=== PATIENT | male | born 1955 | race American Indian/Alaskan Native ===

== ENCOUNTER 2016-06-25 11:18 | Emergency (ER) | payer MEDICAID ==
[2016-06-25 11:49] VITALS: BP 124/74
--- NOTE | 2016-06-25 13:33 | Emergency Department Report ---
HPI - General Chief Complaint: Urogenital-Male Time Seen by Provider: 06/25/16 12:50 - HPI HPI: 61-year-old male presents today with minimal burning upon urination since this morning. Patient states that he was involved with someone yesterday and had unprotected sex. Denies penile discharge, increased urinary frequency or urgency, blood in urine. Positive for history of syphilis. Denies fever, chills, nausea, vomiting, chest pain, shortness of breath, abdominal pain. ED Past Medical Hx - Past Medical History Hx Hypertension: Yes Hx Diabetes: Yes Hx Arthritis: Yes Hx Asthma: Yes Hx COPD: Yes Additional medical history: ENLARGED HEART. NODULES ON LUNGS. SLEEP APNEA. OBESITY - Surgical History Additional Surgical History: Hip replacement - RIGHT. BACK ABLATION - Social History Smoking Status: Never Smoker Substance Use Type: Alcohol - Medications Home Medications: Home Medications Medication Instructions Recorded Confirmed Last Taken Type Insulin NPH/Regular [NovoLIN 70/30] 85 units SUB-Q BID 01/25/13 01/06/15 08:00 History ALBUTEROL Inhaler [ProAir HFA 2 puff IH QID PRN 11/03/14 01/06/15 Unknown History Inhaler] Metoprolol [Lopressor TAB] 50 mg PO DAILY 11/03/14 01/06/15 Unknown History Montelukast [Singulair] 10 mg PO QPM 11/03/14 01/06/15 Unknown History metFORMIN [Glucophage] 1,000 mg PO BID 11/03/14 01/06/15 Unknown History Aspirin EC [Aspirin Enteric Coated 325 mg PO QDAY #30 tablet 11/04/14 01/06/15 Unknown Rx TAB] Furosemide [Lasix TAB] 80 mg PO QDAY 01/06/15 01/06/15 Unknown History HYDROcodone/APAP 5-325 [[place] 1 each PO Q6HR PRN 01/06/15 01/06/15 Unknown History 5-325 mg TAB] HYDROcodone/APAP 5-325 [[place] 1 each PO Q6HR PRN #10 tablet 01/06/15 Unknown Rx 5-325 mg TAB] Loratadine [Claritin] 10 mg PO DAILY 01/06/15 01/06/15 Unknown History Omeprazole [PriLOSEC] 40 mg PO QDAY 01/06/15 01/06/15 Unknown History traMADol [Ultram 50 MG tab] 50 mg PO Q8HR PRN 01/06/15 01/06/15 Unknown History HYDROcodone/APAP 5-325 [[place] 1 each PO Q6HR PRN #14 tablet 02/01/15 Unknown Rx 5/325] Cyclobenzaprine [Flexeril 10 MG 10 mg PO TID PRN #30 tablet 02/28/15 Unknown Rx TAB] Acetaminophen/Codeine [Tylenol #3] 1 tab PO Q6H PRN #10 tab 05/09/15 Unknown Rx Azithromycin [Zithromax Z-TIFFANIE] 250 mg PO DAILY #6 tab 05/09/15 Unknown Rx Fluticasone [Flonase] 1 spray NS QDAY #1 bottle 05/09/15 Unknown Rx guaiFENesin DM [Robitussin Dm] 5 ml PO Q6HR #120 udc 05/09/15 Unknown Rx methOCARBAMOL [Robaxin TAB] 500 mg PO BID #20 tab 06/13/15 Unknown Rx traMADol [Ultram 50 MG tab] 50 mg PO Q6HR PRN #21 tablet 06/13/15 Unknown Rx HYDROcodone/APAP 5-325 [[place] 1 - 2 each PO Q6HR PRN #10 tablet 08/15/15 Unknown Rx 5-325 mg TAB] Phenazopyridine [Pyridium] 200 mg PO TID #6 tab 06/25/16 Unknown Rx ED Review of Systems ROS: Stated complaint: POSS STD Other details as noted in HPI Constitutional: denies: chills, fever, malaise Eyes: denies: eye pain ENT: denies: ear pain, throat pain, congestion Respiratory: denies: cough, shortness of breath, wheezing Cardiovascular: denies: chest pain, palpitations Endocrine: no symptoms reported Gastrointestinal: denies: abdominal pain, nausea, vomiting Genitourinary: dysuria. denies: urgency, frequency, hematuria, discharge, testicular pain, testicular mass Skin: denies: rash Neurological: denies: headache, weakness Physical Exam - Physical Exam Vital Signs: Vital Signs 06/25/16 11:46 Temperature 98.4 F Pulse Rate 92 H Respiratory 18 Rate Blood Pressure 124/74 O2 Sat by Pulse 96 Oximetry Physical Exam: GENERAL: The patient is well-developed and well-nourished. Patient is in NAD. HEAD: Normocephalic. Atraumatic. CHEST/LUNGS: Clear to auscultation throughout. HEART/CARDIOVASCULAR: Regular rate and rhythm. ABDOMEN: Abdomen is soft, nontender. Bowel sounds normoactive. No guarding or rebound tenderness. Negative for CVA tenderness bilaterally. EXTREMITIES: Peripheral pulses intact. Capillary refill less than 2 seconds. NEURO: Alert and oriented x 3. Normal gait. ED Course Vital Signs 06/25/16 11:46 Temperature 98.4 F Pulse Rate 92 H Respiratory 18 Rate Blood Pressure 124/74 O2 Sat by Pulse 96 Oximetry ED Medical Decision Making - Lab Data Vital Signs 06/25/16 11:46 Temperature 98.4 F Pulse Rate 92 H Respiratory 18 Rate Blood Pressure 124/74 O2 Sat by Pulse 96 Oximetry Lab Results 06/25/16 Range/Units Unknown Urine Color Yellow (Yellow) Urine Turbidity Clear (Clear) Urine pH 6.0 (5.0-7.0) Ur Specific [place] 1.017 (1.003-1.030) Urine Protein <15 mg/dl (Negative) mg/dL Urine Glucose (UA) Neg (Negative) mg/dL Urine Ketones Neg (Negative) mg/dL Urine Blood Sm (Negative) Urine Nitrite Neg (Negative) Urine Bilirubin Neg (Negative) Urine Urobilinogen < 2.0 (<2.0) mg/dL Ur Leukocyte Esterase Neg (Negative) Urine WBC (Auto) < 1.0 (0.0-6.0) /HPF Urine RBC (Auto) 3.0 (0.0-6.0) /HPF U Epithel Cells (Auto) < 1.0 (0-13.0) /HPF Urine Mucus Few /HPF - Medical Decision Making 61-year-old male presents today with dysuria since this morning. His urinalysis is within normal limits. His physical exam is unremarkable. Patient is in no acute distress at this time. He will be discharged home and is encouraged to follow up with a primary care provider. He will be sent home on Pyridium and is encouraged to return to the emergency room for any worsening symptoms. Critical care attestation.: If time is entered above; I have spent that time in minutes in the direct care of this critically ill patient, excluding procedure time. ED Disposition Clinical Impression: Dysuria Disposition: DISCHARGED TO HOME OR SELFCARE Is pt being admited?: No Does the pt Need Aspirin: No Condition: Stable Instructions: Dysuria (ED) Additional Instructions: Follow-up with primary care provider. Return to the emergency department if symptoms worsen. Prescriptions: Phenazopyridine [Pyridium] 200 mg PO TID #6 tab Referrals: PRIMARY CARE, [Primary Care Provider] - 3-5 Days [facility] [Outside] - 3-5 Days Forms: Work/School Release Form(ED), STI Treatment and Prevention Time of Disposition: 14:04
[2016-06-25 13:47] LABS: Bilirubin,Urine NEG (Negative); Blood,Urine SM (Negative); Ketones,Urine NEG (Negative); Leukocyte Esterase,Urine NEG (Negative); Mucus,Urine FEW /HPF; Nitrite,Urine NEG (Negative); Protein,Urine <15 mg/dL mg/dL (Negative); Urobilinogen,Urine < 2.0 mg/dL (<2.0); WBC,Urine < 1.0 /HPF (0.0-6.0)
== END 2016-06-25 14:14 | disposition home or self-care (01) ==
LOC: ED 11:18
DX: R30.0 Dysuria (principal); I10 Essential (primary) hypertension; E11.9 Type 2 diabetes mellitus without complications; M19.90 Unspecified osteoarthritis, unspecified site; J45.909 Unspecified asthma, uncomplicated; J44.9 Chronic obstructive pulmonary disease, unspecified; Z96.641 Presence of right artificial hip joint; Z79.4 Long term (current) use of insulin
CPT/HCPCS: 81001; 99283

== ENCOUNTER 2016-11-29 14:50 | Emergency (ER) | payer MEDICAID ==
--- NOTE | 2016-11-29 17:17 | Ultrasound Report ---
FINAL REPORT PROCEDURE: US TESTICULAR DOPPLER COMP TECHNIQUE: Real-time oliveros-scale and color flow Doppler sonography in multiple planes of the scrotum, testicles, and epididymes was performed. Velocity spectral waveform analysis Doppler imaging of the arterial inflow and venous outflow of the testicles was performed with image documentation. CPT 56284 and 57324 HISTORY: Left testicular pain with hx of abscess COMPARISON: No prior studies are available for comparison. FINDINGS: RIGHT TESTICLE: Size: 3.5 x 1.4 x 2.8 cm . Appearance: Normal size and echotexture . Arterial blood flow: Normal spectral waveforms, flow velocities and color flow images.. Venous blood flow: Normal spectral waveforms and color flow images. Right epididymis: 6 millimeter simple cyst is present. Hydrocele: None . LEFT TESTICLE Size: 3.9 x 2.3 x 2.4 cm . Appearance: Normal size and echotexture . Arterial blood flow: Normal spectral waveforms, flow velocities and color flow images.. Venous blood flow: Normal spectral waveforms and color flow images. Left epididymis: Left epididymal head is enlarged compared to the right side. However there is no significant hypervascularity. Hydrocele: None . IMPRESSION: Left epididymal head is mildly enlarged compared to the right side. However there is no significant hypervascularity. Correlate for possible mild epididymitis.
--- NOTE | 2016-11-29 18:39 | Emergency Department Report ---
HPI - General Chief Complaint: Urogenital-Male Time Seen by Provider: 11/29/16 18:31 - HPI HPI: Testicular pain. ED Past Medical Hx - Past Medical History Hx Hypertension: Yes Hx Diabetes: Yes Hx Arthritis: Yes Hx Asthma: Yes Hx COPD: Yes Additional medical history: ENLARGED HEART. NODULES ON LUNGS. SLEEP APNEA. OBESITY - Surgical History Additional Surgical History: Hip replacement - RIGHT. BACK ABLATION - Social History Smoking Status: Never Smoker Substance Use Type: None - Medications Home Medications: Home Medications Medication Instructions Recorded Confirmed Last Taken Type Insulin NPH/Regular [NovoLIN 70/30] 85 units SUB-Q BID 01/25/13 01/06/15 08:00 History ALBUTEROL Inhaler [ProAir HFA 2 puff IH QID PRN 11/03/14 01/06/15 Unknown History Inhaler] Metoprolol [Lopressor TAB] 50 mg PO DAILY 11/03/14 01/06/15 Unknown History Montelukast [Singulair] 10 mg PO QPM 11/03/14 01/06/15 Unknown History metFORMIN [Glucophage] 1,000 mg PO BID 11/03/14 01/06/15 Unknown History Aspirin EC [Aspirin Enteric Coated 325 mg PO QDAY #30 tablet 11/04/14 01/06/15 Unknown Rx TAB] Furosemide [Lasix TAB] 80 mg PO QDAY 01/06/15 01/06/15 Unknown History HYDROcodone/APAP 5-325 [[place] 1 each PO Q6HR PRN 01/06/15 01/06/15 Unknown History 5-325 mg TAB] HYDROcodone/APAP 5-325 [[place] 1 each PO Q6HR PRN #10 tablet 01/06/15 Unknown Rx 5-325 mg TAB] Loratadine [Claritin] 10 mg PO DAILY 01/06/15 01/06/15 Unknown History Omeprazole [PriLOSEC] 40 mg PO QDAY 01/06/15 01/06/15 Unknown History traMADol [Ultram 50 MG tab] 50 mg PO Q8HR PRN 01/06/15 01/06/15 Unknown History HYDROcodone/APAP 5-325 [[place] 1 each PO Q6HR PRN #14 tablet 02/01/15 Unknown Rx 5/325] Cyclobenzaprine [Flexeril 10 MG 10 mg PO TID PRN #30 tablet 02/28/15 Unknown Rx TAB] Acetaminophen/Codeine [Tylenol #3] 1 tab PO Q6H PRN #10 tab 05/09/15 Unknown Rx Azithromycin [Zithromax Z-TIFFANIE] 250 mg PO DAILY #6 tab 05/09/15 Unknown Rx Fluticasone [Flonase] 1 spray NS QDAY #1 bottle 05/09/15 Unknown Rx guaiFENesin DM [Robitussin Dm] 5 ml PO Q6HR #120 udc 05/09/15 Unknown Rx methOCARBAMOL [Robaxin TAB] 500 mg PO BID #20 tab 06/13/15 Unknown Rx traMADol [Ultram 50 MG tab] 50 mg PO Q6HR PRN #21 tablet 06/13/15 Unknown Rx HYDROcodone/APAP 5-325 [[place] 1 - 2 each PO Q6HR PRN #10 tablet 08/15/15 Unknown Rx 5-325 mg TAB] Phenazopyridine [Pyridium] 200 mg PO TID #6 tab 06/25/16 Unknown Rx Ciprofloxacin HCl [Ciprofloxacin 500 mg PO Q12HR #14 tab 11/29/16 Unknown Rx TAB] ED Review of Systems ROS: Stated complaint: TESTICULAR PAIN Other details as noted in HPI Physical Exam - Physical Exam Vital Signs: Vital Signs 11/29/16 15:16 Temperature 98.1 F Pulse Rate 104 H Respiratory 20 Rate Blood Pressure 114/72 O2 Sat by Pulse 96 Oximetry ED Course Vital Signs 11/29/16 15:16 Temperature 98.1 F Pulse Rate 104 H Respiratory 20 Rate Blood Pressure 114/72 O2 Sat by Pulse 96 Oximetry Critical care attestation.: If time is entered above; I have spent that time in minutes in the direct care of this critically ill patient, excluding procedure time. ED Disposition Clinical Impression: Left epididymitis Disposition: DC-01 TO HOME OR SELFCARE Is pt being admited?: No Does the pt Need Aspirin: No Condition: Stable Instructions: Epididymitis (ED) Prescriptions: Ciprofloxacin HCl [Ciprofloxacin TAB] 500 mg PO Q12HR #14 tab Referrals: PRIMARY CARE, [Primary Care Provider] - 3-5 Days Forms: STI Treatment and Prevention
[2016-11-29] MEDS ORDERED: ROCEPHIN IM ONE (18:42)
[2016-11-29] MEDS ORDERED: XYLOCAINE 1% MPF 5 mL INFILTRATI ONE (18:42)
[2016-11-29 18:43] VITALS: BP 136/74
[2016-11-29] MEDS ORDERED: NORCO 5/325 PO ONE (18:44)
[2016-11-29] MEDS ORDERED: TORADOL IM ONE (18:51)
[2016-11-29] MEDS ORDERED: TORADOL ONE (18:51)
== END 2016-11-29 19:38 | disposition home or self-care (01) ==
LOC: ED 14:50
DX: N50.812 Left testicular pain (principal); I10 Essential (primary) hypertension; E11.9 Type 2 diabetes mellitus without complications; M19.90 Unspecified osteoarthritis, unspecified site; J45.909 Unspecified asthma, uncomplicated; E66.9 Obesity, unspecified; Z79.4 Long term (current) use of insulin; Z79.82 Long term (current) use of aspirin; Z88.8 Allergy status to other drugs, medicaments and biological substances
CPT/HCPCS: 93975; 96372; 99283; J0696; J1885

== ENCOUNTER 2016-12-18 10:54 | Emergency (ER) | payer MEDICAID ==
--- NOTE | 2016-12-18 11:32 | Emergency Department Report ---
ED Lower Extremity HPI - General Chief Complaint: Extremity Injury, Lower Stated Complaint: HEEL SPUR Time Seen by Provider: 12/18/16 11:28 Source: patient Mode of arrival: Ambulatory Limitations: No Limitations - History of Present Illness Initial Comments: right foot pain . -: Gradual, month(s) (two) Injury: Foot: Right (no injury) - Related Data Home Medications Medication Instructions Recorded Confirmed Last Taken Insulin NPH/Regular [NovoLIN 70/30] 85 units SUB-Q BID 01/25/13 01/06/15 08:00 ALBUTEROL Inhaler [ProAir HFA 2 puff IH QID PRN 11/03/14 01/06/15 Unknown Inhaler] Metoprolol [Lopressor TAB] 50 mg PO DAILY 11/03/14 01/06/15 Unknown Montelukast [Singulair] 10 mg PO QPM 11/03/14 01/06/15 Unknown metFORMIN [Glucophage] 1,000 mg PO BID 11/03/14 01/06/15 Unknown Furosemide [Lasix TAB] 80 mg PO QDAY 01/06/15 01/06/15 Unknown HYDROcodone/APAP 5-325 [[place] 1 each PO Q6HR PRN 01/06/15 01/06/15 Unknown 5-325 mg TAB] Loratadine [Claritin] 10 mg PO DAILY 01/06/15 01/06/15 Unknown Omeprazole [PriLOSEC] 40 mg PO QDAY 01/06/15 01/06/15 Unknown traMADol [Ultram 50 MG tab] 50 mg PO Q8HR PRN 01/06/15 01/06/15 Unknown Previous Rx's Medication Instructions Recorded Last Taken Type Aspirin EC [Aspirin Enteric Coated 325 mg PO QDAY #30 tablet 11/04/14 Unknown Rx TAB] HYDROcodone/APAP 5-325 [[place] 1 each PO Q6HR PRN #10 tablet 01/06/15 Unknown Rx 5-325 mg TAB] HYDROcodone/APAP 5-325 [[place] 1 each PO Q6HR PRN #14 tablet 02/01/15 Unknown Rx 5/325] Cyclobenzaprine [Flexeril 10 MG 10 mg PO TID PRN #30 tablet 02/28/15 Unknown Rx TAB] Acetaminophen/Codeine [Tylenol #3] 1 tab PO Q6H PRN #10 tab 05/09/15 Unknown Rx Azithromycin [Zithromax Z-TIFFANIE] 250 mg PO DAILY #6 tab 05/09/15 Unknown Rx Fluticasone [Flonase] 1 spray NS QDAY #1 bottle 05/09/15 Unknown Rx guaiFENesin DM [Robitussin Dm] 5 ml PO Q6HR #120 udc 05/09/15 Unknown Rx methOCARBAMOL [Robaxin TAB] 500 mg PO BID #20 tab 06/13/15 Unknown Rx traMADol [Ultram 50 MG tab] 50 mg PO Q6HR PRN #21 tablet 06/13/15 Unknown Rx HYDROcodone/APAP 5-325 [[place] 1 - 2 each PO Q6HR PRN #10 tablet 08/15/15 Unknown Rx 5-325 mg TAB] Phenazopyridine [Pyridium] 200 mg PO TID #6 tab 06/25/16 Unknown Rx Ciprofloxacin HCl [Ciprofloxacin 500 mg PO Q12HR #14 tab 11/29/16 Unknown Rx TAB] Acetaminophen/Codeine [Tylenol 1 tab PO Q6H PRN #14 tab 12/18/16 Unknown Rx /Codeine # 3 tab] Naproxen [Naprosyn] 500 mg PO BID #14 tablet 12/18/16 Unknown Rx Allergies Allergy/AdvReac Type Severity Reaction Status Date / Time lisinopril Allergy Itching Verified 12/18/16 11:04 metformin AdvReac Diarrhea Verified 12/18/16 11:05 ED Review of Systems ROS: Stated complaint: HEEL SPUR Other details as noted in HPI Constitutional: denies: chills, fever ED Past Medical Hx - Past Medical History Hx Hypertension: Yes Hx Diabetes: Yes Hx Arthritis: Yes Hx Asthma: Yes Hx COPD: Yes Additional medical history: ENLARGED HEART. NODULES ON LUNGS. SLEEP APNEA. OBESITY - Surgical History Additional Surgical History: Hip replacement - RIGHT. BACK ABLATION - Social History Smoking Status: Never Smoker Substance Use Type: Prescribed - Medications Home Medications: Home Medications Medication Instructions Recorded Confirmed Last Taken Type Insulin NPH/Regular [NovoLIN 70/30] 85 units SUB-Q BID 01/25/13 01/06/15 08:00 History ALBUTEROL Inhaler [ProAir HFA 2 puff IH QID PRN 11/03/14 01/06/15 Unknown History Inhaler] Metoprolol [Lopressor TAB] 50 mg PO DAILY 11/03/14 01/06/15 Unknown History Montelukast [Singulair] 10 mg PO QPM 11/03/14 01/06/15 Unknown History metFORMIN [Glucophage] 1,000 mg PO BID 11/03/14 01/06/15 Unknown History Aspirin EC [Aspirin Enteric Coated 325 mg PO QDAY #30 tablet 11/04/14 01/06/15 Unknown Rx TAB] Furosemide [Lasix TAB] 80 mg PO QDAY 01/06/15 01/06/15 Unknown History HYDROcodone/APAP 5-325 [[place] 1 each PO Q6HR PRN 01/06/15 01/06/15 Unknown History 5-325 mg TAB] HYDROcodone/APAP 5-325 [[place] 1 each PO Q6HR PRN #10 tablet 01/06/15 Unknown Rx 5-325 mg TAB] Loratadine [Claritin] 10 mg PO DAILY 01/06/15 01/06/15 Unknown History Omeprazole [PriLOSEC] 40 mg PO QDAY 01/06/15 01/06/15 Unknown History traMADol [Ultram 50 MG tab] 50 mg PO Q8HR PRN 01/06/15 01/06/15 Unknown History HYDROcodone/APAP 5-325 [[place] 1 each PO Q6HR PRN #14 tablet 02/01/15 Unknown Rx 5/325] Cyclobenzaprine [Flexeril 10 MG 10 mg PO TID PRN #30 tablet 02/28/15 Unknown Rx TAB] Acetaminophen/Codeine [Tylenol #3] 1 tab PO Q6H PRN #10 tab 05/09/15 Unknown Rx Azithromycin [Zithromax Z-TIFFANIE] 250 mg PO DAILY #6 tab 05/09/15 Unknown Rx Fluticasone [Flonase] 1 spray NS QDAY #1 bottle 05/09/15 Unknown Rx guaiFENesin DM [Robitussin Dm] 5 ml PO Q6HR #120 udc 05/09/15 Unknown Rx methOCARBAMOL [Robaxin TAB] 500 mg PO BID #20 tab 06/13/15 Unknown Rx traMADol [Ultram 50 MG tab] 50 mg PO Q6HR PRN #21 tablet 06/13/15 Unknown Rx HYDROcodone/APAP 5-325 [[place] 1 - 2 each PO Q6HR PRN #10 tablet 08/15/15 Unknown Rx 5-325 mg TAB] Phenazopyridine [Pyridium] 200 mg PO TID #6 tab 06/25/16 Unknown Rx Ciprofloxacin HCl [Ciprofloxacin 500 mg PO Q12HR #14 tab 11/29/16 Unknown Rx TAB] Acetaminophen/Codeine [Tylenol 1 tab PO Q6H PRN #14 tab 12/18/16 Unknown Rx /Codeine # 3 tab] Naproxen [Naprosyn] 500 mg PO BID #14 tablet 12/18/16 Unknown Rx ED Physical Exam - General Limitations: No Limitations General appearance: alert - Expanded Lower Extremity Exam Right Foot/Toe exam: Present: full ROM, tenderness, calcaneal tenderness. Absent: swelling, abrasion, laceration, ecchymosis, deformity, dislocation, erythema, tenderness at base of 5th metatarsal Neuro vascular tendon exam: Present: no vascular compromise - Skin Skin exam: Present: warm, intact ED Course Vital Signs 12/18/16 11:08 Temperature 97.9 F Pulse Rate 86 Respiratory 15 Rate Blood Pressure 130/75 O2 Sat by Pulse 96 Oximetry Critical care attestation.: If time is entered above; I have spent that time in minutes in the direct care of this critically ill patient, excluding procedure time. ED Disposition Clinical Impression: Foot pain, Plantar fasciitis Disposition: DC-01 TO HOME OR SELFCARE Is pt being admited?: No Condition: Stable Instructions: Plantar Fasciitis (ED) Prescriptions: Acetaminophen/Codeine [Tylenol /Codeine # 3 tab] 1 tab PO Q6H PRN #14 tab PRN Reason: Pain Naproxen [Naprosyn] 500 mg PO BID #14 tablet
--- NOTE | 2016-12-18 11:58 | XRay Report ---
RIGHT FOOT RADIOGRAPHS INDICATION: Foot pain. COMPARISON: None similar. FINDINGS: AP and lateral right foot radiographs demonstrate moderate hallux valgus. Intact remainder bony articulation and soft tissues. CONCLUSION: Hallux valgus without acute radiographic abnormality, as described. Thank you for the opportunity to participate in this patient's care.
[2016-12-18 12:45] VITALS: BP 138/89
== END 2016-12-18 12:45 | disposition home or self-care (01) ==
LOC: ED 10:54
DX: M72.2 Plantar fascial fibromatosis (principal); I10 Essential (primary) hypertension; E11.9 Type 2 diabetes mellitus without complications; J45.909 Unspecified asthma, uncomplicated; J44.9 Chronic obstructive pulmonary disease, unspecified

== ENCOUNTER 2017-01-04 21:59 | Emergency (ER) | payer MEDICAID ==
--- NOTE | 2017-01-05 01:30 | XRay Report ---
FINAL REPORT EXAM: XR FOOT 3+V RT HISTORY: Right foot injury COMPARISON: None available. FINDINGS: Three views of right foot obtained. Mild hallux valgus deformity with bunion formation. Joint spaces are preserved. Bony structures are intact. No acute fracture or dislocation. IMPRESSION: No acute bony abnormality.
[2017-01-05] MEDS ORDERED: TORADOL IV ONE (01:47)
[2017-01-05] MEDS ORDERED: NORCO 5/325 PO ONE (01:47)
--- NOTE | 2017-01-05 01:50 | Emergency Department Report ---
ED Lower Extremity HPI - General Chief Complaint: Extremity Injury, Lower Stated Complaint: R FOOT INJURY Source: patient, EMS (ems notes not available at time of chart dictation), RN notes reviewed Mode of arrival: Stretcher Limitations: No Limitations - History of Present Illness Initial Comments: This is a 61-year-old male, he is previously unknown to me. He presents to the ER with right-sided dorsal and plantar foot pain. He reports walking through stairs, and heard a "pop", and has a subsequent inability to bear weight. The patient is on the dorsal and plantar aspect of the foot, it does not radiate anywhere, it increases with palpation and range of motion, and decreases with rest. No other injuries, no other complaints. MD Complaint: foot injury -: Sudden Injury: Foot: Right Type of Injury: unknown Place: home Severity: moderate Improves With: rest Worsens With: weight bearing, movement, palpation Context: walking Associated Symptoms: snap/pop sensation, swelling - Related Data Home Medications Medication Instructions Recorded Confirmed Last Taken Insulin NPH/Regular [NovoLIN 70/30] 85 units SUB-Q BID 01/25/13 01/06/15 08:00 ALBUTEROL Inhaler [ProAir HFA 2 puff IH QID PRN 11/03/14 01/06/15 Unknown Inhaler] Metoprolol [Lopressor TAB] 50 mg PO DAILY 11/03/14 01/06/15 Unknown Montelukast [Singulair] 10 mg PO QPM 11/03/14 01/06/15 Unknown metFORMIN [Glucophage] 1,000 mg PO BID 11/03/14 01/06/15 Unknown Furosemide [Lasix TAB] 80 mg PO QDAY 01/06/15 01/06/15 Unknown HYDROcodone/APAP 5-325 [[place] 1 each PO Q6HR PRN 01/06/15 01/06/15 Unknown 5-325 mg TAB] Loratadine [Claritin] 10 mg PO DAILY 01/06/15 01/06/15 Unknown Omeprazole [PriLOSEC] 40 mg PO QDAY 01/06/15 01/06/15 Unknown traMADol [Ultram 50 MG tab] 50 mg PO Q8HR PRN 01/06/15 01/06/15 Unknown Previous Rx's Medication Instructions Recorded Last Taken Type Aspirin EC [Aspirin Enteric Coated 325 mg PO QDAY #30 tablet 11/04/14 Unknown Rx TAB] HYDROcodone/APAP 5-325 [[place] 1 each PO Q6HR PRN #10 tablet 01/06/15 Unknown Rx 5-325 mg TAB] HYDROcodone/APAP 5-325 [[place] 1 each PO Q6HR PRN #14 tablet 02/01/15 Unknown Rx 5/325] Cyclobenzaprine [Flexeril 10 MG 10 mg PO TID PRN #30 tablet 02/28/15 Unknown Rx TAB] Acetaminophen/Codeine [Tylenol #3] 1 tab PO Q6H PRN #10 tab 05/09/15 Unknown Rx Azithromycin [Zithromax Z-TIFFANIE] 250 mg PO DAILY #6 tab 05/09/15 Unknown Rx Fluticasone [Flonase] 1 spray NS QDAY #1 bottle 05/09/15 Unknown Rx guaiFENesin DM [Robitussin Dm] 5 ml PO Q6HR #120 udc 05/09/15 Unknown Rx methOCARBAMOL [Robaxin TAB] 500 mg PO BID #20 tab 06/13/15 Unknown Rx traMADol [Ultram 50 MG tab] 50 mg PO Q6HR PRN #21 tablet 06/13/15 Unknown Rx HYDROcodone/APAP 5-325 [[place] 1 - 2 each PO Q6HR PRN #10 tablet 08/15/15 Unknown Rx 5-325 mg TAB] Phenazopyridine [Pyridium] 200 mg PO TID #6 tab 06/25/16 Unknown Rx Ciprofloxacin HCl [Ciprofloxacin 500 mg PO Q12HR #14 tab 11/29/16 Unknown Rx TAB] Acetaminophen/Codeine [Tylenol 1 tab PO Q6H PRN #14 tab 12/18/16 Unknown Rx /Codeine # 3 tab] Naproxen [Naprosyn] 500 mg PO BID #14 tablet 12/18/16 Unknown Rx Ibuprofen [Motrin] 600 mg PO Q8H PRN #30 tablet 01/05/17 Unknown Rx traMADol [Ultram 50 MG tab] 50 mg PO Q6HR PRN #20 tablet 01/05/17 Unknown Rx Allergies Allergy/AdvReac Type Severity Reaction Status Date / Time lisinopril Allergy Itching Verified 12/18/16 11:04 metformin AdvReac Diarrhea Verified 12/18/16 11:05 ED Review of Systems ROS: Stated complaint: R FOOT INJURY Other details as noted in HPI Constitutional: denies: fever Respiratory: denies: shortness of breath Cardiovascular: denies: chest pain Gastrointestinal: denies: abdominal pain Musculoskeletal: arthralgia, myalgia Neurological: denies: weakness, numbness ED Past Medical Hx - Past Medical History Previous Medical History?: Yes Hx Hypertension: Yes Hx Diabetes: Yes Hx Arthritis: Yes Hx Asthma: Yes Hx COPD: Yes Additional medical history: ENLARGED HEART. NODULES ON LUNGS. SLEEP APNEA Uses a CPAP machine at night. OBESITY - Surgical History Additional Surgical History: Hip replacement - RIGHT. BACK ABLATION - Social History Smoking Status: Never Smoker - Medications Home Medications: Home Medications Medication Instructions Recorded Confirmed Last Taken Type Insulin NPH/Regular [NovoLIN 70/30] 85 units SUB-Q BID 01/25/13 01/06/15 08:00 History ALBUTEROL Inhaler [ProAir HFA 2 puff IH QID PRN 11/03/14 01/06/15 Unknown History Inhaler] Metoprolol [Lopressor TAB] 50 mg PO DAILY 11/03/14 01/06/15 Unknown History Montelukast [Singulair] 10 mg PO QPM 11/03/14 01/06/15 Unknown History metFORMIN [Glucophage] 1,000 mg PO BID 11/03/14 01/06/15 Unknown History Aspirin EC [Aspirin Enteric Coated 325 mg PO QDAY #30 tablet 11/04/14 01/06/15 Unknown Rx TAB] Furosemide [Lasix TAB] 80 mg PO QDAY 01/06/15 01/06/15 Unknown History HYDROcodone/APAP 5-325 [[place] 1 each PO Q6HR PRN 01/06/15 01/06/15 Unknown History 5-325 mg TAB] HYDROcodone/APAP 5-325 [[place] 1 each PO Q6HR PRN #10 tablet 01/06/15 Unknown Rx 5-325 mg TAB] Loratadine [Claritin] 10 mg PO DAILY 01/06/15 01/06/15 Unknown History Omeprazole [PriLOSEC] 40 mg PO QDAY 01/06/15 01/06/15 Unknown History traMADol [Ultram 50 MG tab] 50 mg PO Q8HR PRN 01/06/15 01/06/15 Unknown History HYDROcodone/APAP 5-325 [[place] 1 each PO Q6HR PRN #14 tablet 02/01/15 Unknown Rx 5/325] Cyclobenzaprine [Flexeril 10 MG 10 mg PO TID PRN #30 tablet 02/28/15 Unknown Rx TAB] Acetaminophen/Codeine [Tylenol #3] 1 tab PO Q6H PRN #10 tab 05/09/15 Unknown Rx Azithromycin [Zithromax Z-TIFFANIE] 250 mg PO DAILY #6 tab 05/09/15 Unknown Rx Fluticasone [Flonase] 1 spray NS QDAY #1 bottle 05/09/15 Unknown Rx guaiFENesin DM [Robitussin Dm] 5 ml PO Q6HR #120 udc 05/09/15 Unknown Rx methOCARBAMOL [Robaxin TAB] 500 mg PO BID #20 tab 06/13/15 Unknown Rx traMADol [Ultram 50 MG tab] 50 mg PO Q6HR PRN #21 tablet 06/13/15 Unknown Rx HYDROcodone/APAP 5-325 [[place] 1 - 2 each PO Q6HR PRN #10 tablet 08/15/15 Unknown Rx 5-325 mg TAB] Phenazopyridine [Pyridium] 200 mg PO TID #6 tab 06/25/16 Unknown Rx Ciprofloxacin HCl [Ciprofloxacin 500 mg PO Q12HR #14 tab 11/29/16 Unknown Rx TAB] Acetaminophen/Codeine [Tylenol 1 tab PO Q6H PRN #14 tab 12/18/16 Unknown Rx /Codeine # 3 tab] Naproxen [Naprosyn] 500 mg PO BID #14 tablet 12/18/16 Unknown Rx Ibuprofen [Motrin] 600 mg PO Q8H PRN #30 tablet 01/05/17 Unknown Rx traMADol [Ultram 50 MG tab] 50 mg PO Q6HR PRN #20 tablet 01/05/17 Unknown Rx ED Physical Exam - General Limitations: Physical Limitation General appearance: alert, in no apparent distress - Head Head exam: Present: atraumatic, normocephalic - Eye Eye exam: Present: normal appearance, EOMI. Absent: nystagmus - ENT ENT exam: Present: normal exam, normal orophraynx, mucous membranes moist, normal external ear exam - Neck Neck exam: Present: normal inspection, full ROM. Absent: tenderness - Respiratory Respiratory exam: Present: normal lung sounds bilaterally. Absent: respiratory distress, chest wall tenderness - Cardiovascular Cardiovascular Exam: Present: regular rate, normal rhythm, normal heart sounds. Absent: systolic murmur, diastolic murmur, rubs, gallop - GI/Abdominal GI/Abdominal exam: Present: soft, normal bowel sounds. Absent: distended, tenderness, guarding, rebound, rigid, pulsatile mass - Rectal Rectal exam: Present: deferred - Extremities Exam Extremities exam: Present: normal inspection, full ROM, tenderness (the dorsal and plantar aspect of the right foot are tender. There is no calcaneal tenderness. There is no tenderness at the base of the fifth metatarsal. There is no streaking. There is pain with passive range of motion of the great toe. Dorsi and plantar flexion of the right-sided toes are intact.), normal capillary refill, other (the bilateral upper extremities are unremarkable, the left lower extremity is unremarkable. Compartments are soft in 4 extremities, 2 + pulses noted in 4 extremities. There is no pelvic instability. There is no long bony tenderness in the bilateral upper and lower extremities.). Absent: pedal edema, joint swelling, calf tenderness - Back Exam Back exam: Present: normal inspection, full ROM. Absent: tenderness, CVA tenderness (R), CVA tenderness (L), muscle spasm, paraspinal tenderness, vertebral tenderness - Neurological Exam Neurological exam: Present: alert, oriented X3, other (Extraocular movements intact. Tongue midline. No facial droop. Facial sensation intact to light touch in the V1, V2, V3 distribution bilaterally. 5 and 5 strength in 4 extremities.. Sensation is intact to light touch in 4 extremities.). Absent: motor sensory deficit - Psychiatric Psychiatric exam: Present: normal affect, normal mood - Skin Skin exam: Present: warm, dry, intact, normal color. Absent: rash ED Course Vital Signs 01/04/17 23:22 Temperature 98.1 F Pulse Rate 103 H Respiratory 18 Rate Blood Pressure 119/73 O2 Sat by Pulse 97 Oximetry ED Lower Extremity MDM - Lab Data Vital Signs 01/04/17 23:22 Temperature 98.1 F Pulse Rate 103 H Respiratory 18 Rate Blood Pressure 119/73 O2 Sat by Pulse 97 Oximetry - Radiology Data Radiology results: report reviewed, image reviewed interpreted by me: X-ray of the foot is negative for acute disease - Medical Decision Making Differential diagnosis: Tendinitis, plantar fasciitis, tendon sprain, tendon strain, tendon compromise/rupture Assessment and plan: 61-year-old male with spontaneous right sided plantar foot pain and dorsal pain. He is afebrile with reassuring vital signs, his tachycardia has resolved, he is neurovascularly intact. His compartments are soft. Patient will be placed in a hard sole shoe, he is made nonweightbearing and given crutches, and he is instructed to follow-up with outpatient podiatry or orthopedics. Return precautions are reviewed at this time. Critical care attestation.: If time is entered above; I have spent that time in minutes in the direct care of this critically ill patient, excluding procedure time. ED Disposition Clinical Impression: Right foot pain Disposition: DC-01 TO HOME OR SELFCARE Is pt being admited?: No Does the pt Need Aspirin: No Condition: Stable Instructions: Plantar Fasciitis (ED) Additional Instructions: Rest and avoid heavy lifting. Use the crutches as directed. Apply the hard sole shoe to the affected right lower extremity foot. Follow up with a training project manager or orthopedic physician within the next 5-7 days. Return to the ER right away with new pain, worsening pain, migration of pain, fevers, chills, chest pain, shortness of breath, weakness, numbness, intractable nausea or vomiting, confusion, inability to tolerate liquid feeds. Prescriptions: Ibuprofen [Motrin] 600 mg PO Q8H PRN #30 tablet PRN Reason: Pain traMADol [Ultram 50 MG tab] 50 mg PO Q6HR PRN #20 tablet PRN Reason: Pain Referrals: PRIMARY CARE, [Primary Care Provider] - 3-5 Days TJ SÁNCHEZ DPM [Staff Physician] - 3-5 Days ALISON MERRITT MD [Staff Physician] - 3-5 Days Forms: Work/School Release Form(ED)
[2017-01-05 03:56] VITALS: BP 150/60
== END 2017-01-05 03:56 | disposition home or self-care (01) ==
LOC: ED 21:59
DX: M79.671 Pain in right foot (principal); I10 Essential (primary) hypertension; E11.9 Type 2 diabetes mellitus without complications; J45.909 Unspecified asthma, uncomplicated; Z88.8 Allergy status to other drugs, medicaments and biological substances; X58.XXXA Exposure to other specified factors, initial encounter; Y93.89 Activity, other specified; Y92.89 Other specified places as the place of occurrence of the external cause; Y99.8 Other external cause status
CPT/HCPCS: 73630; 96374; 99284; J1885

== ENCOUNTER 2017-06-04 09:25 | Emergency (ER) | payer MEDICAID ==
[2017-06-04 09:59] VITALS: BP 132/64
[2017-06-04] MEDS ORDERED: DELTASONE PO ONE (13:30)
[2017-06-04] MEDS ORDERED: FLEXERIL PO ONE (13:30)
[2017-06-04] MEDS ORDERED: TORADOL IM ONE (13:30)
--- NOTE | 2017-06-04 13:32 | Emergency Department Report ---
HPI - General Chief Complaint: Extremity Problem,Nontraumatic Time Seen by Provider: 06/04/17 13:11 - HPI HPI: Patient is a 62-year-old male with a history of chronic left hip degenerative joint disease who presents to ED stating the past couple of days his hip pain has been aggravated him due to the fact that he is out of his medications. She states he sees [facility] for his primary care and is not able to get an appointment next month. Patient denies any recent injury or trauma to the hip. Patient denies any loss of sensation or inability to walk. Patient just states that hip pain is aggravated with walking and standing. ED Past Medical Hx - Past Medical History Previous Medical History?: Yes Hx Hypertension: Yes Hx Diabetes: Yes Hx Arthritis: Yes Hx Asthma: Yes Hx COPD: Yes Additional medical history: ENLARGED HEART. NODULES ON LUNGS. SLEEP APNEA Uses a CPAP machine at night. OBESITY - Surgical History Additional Surgical History: Hip replacement - RIGHT. BACK ABLATION - Social History Smoking Status: Never Smoker Substance Use Type: Alcohol - Medications Home Medications: Home Medications Medication Instructions Recorded Confirmed Last Taken Type Insulin NPH/Regular [NovoLIN 70/30] 85 units SUB-Q BID 01/25/13 01/06/15 08:00 History ALBUTEROL Inhaler [ProAir HFA 2 puff IH QID PRN 11/03/14 01/06/15 Unknown History Inhaler] Metoprolol [Lopressor TAB] 50 mg PO DAILY 11/03/14 01/06/15 Unknown History Montelukast [Singulair] 10 mg PO QPM 11/03/14 01/06/15 Unknown History metFORMIN [Glucophage] 1,000 mg PO BID 11/03/14 01/06/15 Unknown History Aspirin EC [Aspirin Enteric Coated 325 mg PO QDAY #30 tablet 11/04/14 01/06/15 Unknown Rx TAB] Furosemide [Lasix TAB] 80 mg PO QDAY 01/06/15 01/06/15 Unknown History HYDROcodone/APAP 5-325 [[place] 1 each PO Q6HR PRN 01/06/15 01/06/15 Unknown History 5-325 mg TAB] HYDROcodone/APAP 5-325 [[place] 1 each PO Q6HR PRN #10 tablet 01/06/15 Unknown Rx 5-325 mg TAB] Loratadine [Claritin] 10 mg PO DAILY 01/06/15 01/06/15 Unknown History Omeprazole [PriLOSEC] 40 mg PO QDAY 01/06/15 01/06/15 Unknown History traMADol [Ultram 50 MG tab] 50 mg PO Q8HR PRN 01/06/15 01/06/15 Unknown History HYDROcodone/APAP 5-325 [[place] 1 each PO Q6HR PRN #14 tablet 02/01/15 Unknown Rx 5/325] Acetaminophen/Codeine [Tylenol #3] 1 tab PO Q6H PRN #10 tab 05/09/15 Unknown Rx Azithromycin [Zithromax Z-TIFFANIE] 250 mg PO DAILY #6 tab 05/09/15 Unknown Rx Fluticasone [Flonase] 1 spray NS QDAY #1 bottle 05/09/15 Unknown Rx guaiFENesin DM [Robitussin Dm] 5 ml PO Q6HR #120 udc 05/09/15 Unknown Rx methOCARBAMOL [Robaxin TAB] 500 mg PO BID #20 tab 06/13/15 Unknown Rx traMADol [Ultram 50 MG tab] 50 mg PO Q6HR PRN #21 tablet 06/13/15 Unknown Rx HYDROcodone/APAP 5-325 [[place] 1 - 2 each PO Q6HR PRN #10 tablet 08/15/15 Unknown Rx 5-325 mg TAB] Phenazopyridine [Pyridium] 200 mg PO TID #6 tab 06/25/16 Unknown Rx Ciprofloxacin HCl [Ciprofloxacin 500 mg PO Q12HR #14 tab 11/29/16 Unknown Rx TAB] Acetaminophen/Codeine [Tylenol 1 tab PO Q6H PRN #14 tab 12/18/16 Unknown Rx /Codeine # 3 tab] Ibuprofen [Motrin] 600 mg PO Q8H PRN #30 tablet 01/05/17 Unknown Rx traMADol [Ultram 50 MG tab] 50 mg PO Q6HR PRN #20 tablet 01/05/17 Unknown Rx Cyclobenzaprine [Flexeril 10 MG 10 mg PO QHS PRN #20 tablet 06/04/17 Unknown Rx TAB] Naproxen [Naprosyn TAB] 500 mg PO BID #30 tablet 06/04/17 Unknown Rx ED Review of Systems ROS: Stated complaint: LEFT HIP PAIN Other details as noted in HPI Constitutional: denies: chills, fever Eyes: denies: eye pain, eye discharge, vision change ENT: denies: ear pain, throat pain Respiratory: denies: cough, shortness of breath, wheezing Cardiovascular: denies: chest pain, palpitations Endocrine: no symptoms reported Gastrointestinal: denies: abdominal pain, nausea, diarrhea Genitourinary: denies: urgency, dysuria Musculoskeletal: arthralgia. denies: back pain, joint swelling Skin: denies: rash, lesions Neurological: denies: headache, weakness, paresthesias Psychiatric: denies: anxiety, depression Hematological/Lymphatic: denies: easy bleeding, easy bruising Physical Exam - Physical Exam Vital Signs: Vital Signs 06/04/17 09:56 Temperature 98.6 F Pulse Rate 84 Respiratory 18 Rate Blood Pressure 132/64 O2 Sat by Pulse 100 Oximetry Physical Exam: GENERAL: Alert and oriented x3, no apparent distress, Normal Gait, atraumatic. HEAD: Head is normocephalic and a-traumatic. EYES: Extra ocular muscles are intact. Pupils are equal, round, and reactive to light and accommodation. EARS: symetrical, atraumatic, non tender, ear canal clear and moderate cerumen, tympanic membrance non inflamed. gross auditory nml bilaterally. NOSE: Nose symetrical, Nontender,Nares appeared normal. MOUTH:Mouth is well hydrated and without lesions. Tonsils nonerythematous or swollen, Uvula midline, Tongue not elevated. Mucous membranes are moist. Posterior pharynx clear, no exudate or lesions. Patent airways. NECK: Supple. Non edematous, No carotid bruits. No lymphadenopathy or thyromegaly. No C-spine tenderness LUNGS: Symetrical with respiration, No wheezing, no rales or crackles, CTAB. HEART: S1, S2 present, regular rate and rhythm without murmur, no rubs, no gallops. Non tender to palpation ABDOMEN: No organomegaly was noted,Positive bowel sounds, soft, and non- distended. . Nontender to palpation on all Quadrants, NO CVA tenderness. BACK: Full range of motion, no spinal tenderness, nontender to palpation. BREAST: Symetrical, Supple bilaterally, No Masses, lumps, lesions, ulcerations. GENITOURINARY: External genitalia without erythema, exudate or discharge. Vaginal vault is without discharge. Cervix is of normal color without lesion. Cervical os is closed. No bleeding noted. Uterus is noted to be of normal size and nontender. No cervical motion tenderness. No masses are palpated. The adnexa are without masses or tenderness. UROGENITAL: No scrotal mass, Scrotum non tender to palpation bilaterally, no hernia, no scars or penile discharge. EXTREMITIES/MUSCULOSKELETAL: No cyanosis, clubbing, rash, lesions or edema. Full ROM bilaterally. UE/LE Pulses 2+ bilaterally. LE and UE 5+ strength bilaterally, straight leg raise negative bilaterally NEUROLOGIC: The patient is cooperative with no focal neurologic deficits. Cranial nerves II through XII are grossly intact. Normal speech. Normal sensation in bilateral upper and lower extremities, No loss of sensation, No facial droop, Negative rhomberg. PSYCHIATRIC: Mood is congruent with affect, denies suicidal or homicidal ideations. SKIN: Warm and dry, No lesions, No ulceration or induration present. ED Course Vital Signs 06/04/17 09:56 Temperature 98.6 F Pulse Rate 84 Respiratory 18 Rate Blood Pressure 132/64 O2 Sat by Pulse 100 Oximetry Critical care attestation.: If time is entered above; I have spent that time in minutes in the direct care of this critically ill patient, excluding procedure time. ED Disposition Clinical Impression: Chronic left hip pain Arthralgia Qualifiers: Joint pain location: hip Laterality: left Qualified Code(s): M25.552 - Pain in left hip Disposition: - TO HOME OR SELFCARE Is pt being admited?: No Does the pt Need Aspirin: No Condition: Stable Instructions: Musculoskeletal Pain (ED), Trigger Point Pain (ED), Arthralgia ( ED) Additional Instructions: Make sure to follow up with the primary care physician as discussed. Take all your medications as you've been prescribed. If you have any worsening symptoms or develop new symptoms please return to ED immediately. Prescriptions: Cyclobenzaprine [Flexeril 10 MG TAB] 10 mg PO QHS PRN #20 tablet PRN Reason: Muscle Spasm Naproxen [Naprosyn TAB] 500 mg PO BID #30 tablet Referrals: PRIMARY CARE, [Primary Care Provider] - 3-5 Days [facility] [Outside] - 3-5 Days [facility] [Outside] - 3-5 Days Forms: Work/School Release Form(ED) Time of Disposition: 13:47
== END 2017-06-04 14:06 | disposition home or self-care (01) ==
LOC: ED 09:25
DX: M25.552 Pain in left hip (principal); G89.29 Other chronic pain; I10 Essential (primary) hypertension; E11.9 Type 2 diabetes mellitus without complications; J45.909 Unspecified asthma, uncomplicated; J44.9 Chronic obstructive pulmonary disease, unspecified; E66.9 Obesity, unspecified; Z79.4 Long term (current) use of insulin
CPT/HCPCS: 96372; 99283; J1885; J7512

== ENCOUNTER 2017-09-22 17:09 | Emergency (ER) | payer MEDICAID ==
[2017-09-22 17:28] VITALS: BP 123/65
[2017-09-22 17:40] LABS: Hematocrit 40.3 % (35.5-45.6); Hemoglobin 13.3 gm/dl (11.8-15.2); Mean Corpuscular HGB Conc 33 % (32-34); Mean Corpuscular Hemoglobin 31 pg (28-32); Mean Corpuscular Volume 94 fl (84-94); Platelet Count 194 K/mm3 (140-440); Red Cell Distribution Width 13.8 % (13.2-15.2)
[2017-09-22 17:56] LABS: BUN/Creatinine Ratio 13; Blood Urea Nitrogen 12 mg/dL (9-20); Calcium 9.3 mg/dL (8.4-10.2)
[2017-09-22 17:57] LABS: Hemolysis Index 21
--- NOTE | 2017-09-22 19:14 | XRay Report ---
FINAL REPORT PROCEDURE: XR CHEST ROUTINE 2V TECHNIQUE: PA and lateral chest radiographs were obtained. CPT 72329 HISTORY: Shortness of breath. History of COPD. COMPARISON: No prior studies are available for comparison. FINDINGS: Heart: Normal. Mediastinum/Vessels: Linear densities about the aortic arch. Mild aortic calcification. Lungs/Pleural space: Low lung volumes. Perihilar and bibasilar opacities. Bony thorax: Multilevel osteophytes and disc space narrowing. Other: IMPRESSION: Linear densities about the aortic arch, felt to be related to the sternum considering patient positioning rather than process such as subtle pneumomediastinum. Low lung volumes. Perihilar and bibasilar opacities, consider atelectasis. Cannot exclude pneumonia. Consider attention on followup PA and lateral chest radiograph if above findings are of continued clinical concern.
== END 2017-09-22 20:15 | disposition left against medical advice (07) ==
LOC: ED 17:09
DX: R06.02 Shortness of breath (principal); Z53.21 Procedure and treatment not carried out due to patient leaving prior to being seen by health care provider
CPT/HCPCS: 36415; 71046; 80048; 85027

== ENCOUNTER 2018-05-24 10:04 | Emergency (ER) | payer MEDICAID ==
[2018-05-24 10:14] VITALS: BP 122/74
--- NOTE | 2018-05-24 12:26 | Emergency Department Report ---
ED Upper Extremity Inj HPI - General Chief Complaint: Extremity Problem,Nontraumatic Stated Complaint: LFT HAND PAIN Time Seen by Provider: 05/24/18 12:09 Source: patient Mode of arrival: Ambulatory Limitations: No Limitations - History of Present Illness Initial Comments: This is a 62-year-old -[place] male who presents with pain to left first digit for 2 weeks. Patient states he was wrestling with her friend and possibly injured finger. He reports pain proximal joint of 1st digit of left hand. He is right handed. He also complains of finger popping with movement. He denies weakness, swelling, erythema, numbness or tingling, or paresthesias. MD Complaint: Injury to:: left, finger (1st digit) Onset/Timin -: week(s) Other Extremity Injury: Fingers: Left (1st digit pain and locking with range of motion) Other Injuries: none Handedness: right Place: home Severity scale (0 -10): 5 Improves With: none Worsens With: movement of extremity Associated Symptoms: denies other symptoms - Related Data Home Medications Medication Instructions Recorded Confirmed Last Taken Insulin NPH/Regular [NovoLIN 70/30] 85 units SUB-Q BID 01/25/13 01/06/15 01/25/13 08:00 ALBUTEROL Inhaler (OR & NICU) 2 puff IH QID PRN 11/03/14 01/06/15 Unknown [ProAir HFA Inhaler] Metoprolol [Lopressor TAB] 50 mg PO DAILY 11/03/14 01/06/15 Unknown Montelukast [Singulair] 10 mg PO QPM 11/03/14 01/06/15 Unknown metFORMIN [Glucophage] 1,000 mg PO BID 11/03/14 01/06/15 Unknown Furosemide [Lasix TAB] 80 mg PO QDAY 01/06/15 01/06/15 Unknown HYDROcodone/APAP 5-325 [[place] 1 each PO Q6HR PRN 01/06/15 01/06/15 Unknown 5-325 mg TAB] Loratadine [Claritin] 10 mg PO DAILY 01/06/15 01/06/15 Unknown Omeprazole [PriLOSEC] 40 mg PO QDAY 01/06/15 01/06/15 Unknown traMADol [Ultram 50 MG tab] 50 mg PO Q8HR PRN 01/06/15 01/06/15 Unknown Previous Rx's Medication Instructions Recorded Last Taken Type Aspirin EC [Aspirin Enteric Coated 325 mg PO QDAY #30 tablet 11/04/14 Unknown Rx TAB] HYDROcodone/APAP 5-325 [[place] 1 each PO Q6HR PRN #10 tablet 01/06/15 Unknown Rx 5-325 mg TAB] HYDROcodone/APAP 5-325 [[place] 1 each PO Q6HR PRN #14 tablet 02/01/15 Unknown Rx 5/325] Acetaminophen/Codeine [Tylenol #3] 1 tab PO Q6H PRN #10 tab 05/09/15 Unknown Rx Azithromycin [Zithromax Z-TIFFANIE] 250 mg PO DAILY #6 tab 05/09/15 Unknown Rx Fluticasone [Flonase] 1 spray NS QDAY #1 bottle 05/09/15 Unknown Rx guaiFENesin DM [Robitussin Dm] 5 ml PO Q6HR #120 udc 05/09/15 Unknown Rx methOCARBAMOL [Robaxin TAB] 500 mg PO BID #20 tab 06/13/15 Unknown Rx traMADol [Ultram 50 MG tab] 50 mg PO Q6HR PRN #21 tablet 06/13/15 Unknown Rx HYDROcodone/APAP 5-325 [[place] 1 - 2 each PO Q6HR PRN #10 tablet 08/15/15 Unknown Rx 5-325 mg TAB] Phenazopyridine [Pyridium] 200 mg PO TID #6 tab 06/25/16 Unknown Rx Ciprofloxacin HCl [Ciprofloxacin 500 mg PO Q12HR #14 tab 11/29/16 Unknown Rx TAB] Acetaminophen/Codeine [Tylenol 1 tab PO Q6H PRN #14 tab 12/18/16 Unknown Rx /Codeine # 3 tab] Ibuprofen [Motrin] 600 mg PO Q8H PRN #30 tablet 01/05/17 Unknown Rx traMADol [Ultram 50 MG tab] 50 mg PO Q6HR PRN #20 tablet 01/05/17 Unknown Rx Cyclobenzaprine [Flexeril 10 MG 10 mg PO QHS PRN #20 tablet 06/04/17 Unknown Rx TAB] Naproxen [Naprosyn TAB] 500 mg PO BID #30 tablet 06/04/17 Unknown Rx Naproxen [Naprosyn] 500 mg PO TID #9 tablet 05/24/18 Unknown Rx Allergies Allergy/AdvReac Type Severity Reaction Status Date / Time lisinopril Allergy Itching Verified 12/18/16 11:04 metformin AdvReac Diarrhea Verified 12/18/16 11:05 ED Review of Systems ROS: Stated complaint: LFT HAND PAIN Other details as noted in HPI Constitutional: denies: chills, fever Respiratory: denies: cough, shortness of breath, wheezing Cardiovascular: denies: chest pain, palpitations Gastrointestinal: denies: abdominal pain, nausea, diarrhea Musculoskeletal: arthralgia (left 1st digit ) Skin: denies: rash, lesions Neurological: denies: headache, weakness, paresthesias Psychiatric: denies: anxiety, depression ED Past Medical Hx - Past Medical History Previous Medical History?: Yes Hx Hypertension: Yes Hx Diabetes: Yes Hx Arthritis: Yes Hx Asthma: Yes Hx COPD: Yes Additional medical history: ENLARGED HEART. NODULES ON LUNGS. SLEEP APNEA Uses a CPAP machine at night. OBESITY - Surgical History Past Surgical History?: Yes Additional Surgical History: Hip replacement - RIGHT. BACK ABLATION - Social History Smoking Status: Never Smoker Substance Use Type: Alcohol - Medications Home Medications: Home Medications Medication Instructions Recorded Confirmed Last Taken Type Insulin NPH/Regular [NovoLIN 70/30] 85 units SUB-Q BID 01/25/13 01/06/15 01/25/13 08:00 History ALBUTEROL Inhaler (OR & NICU) 2 puff IH QID PRN 11/03/14 01/06/15 Unknown History [ProAir HFA Inhaler] Metoprolol [Lopressor TAB] 50 mg PO DAILY 11/03/14 01/06/15 Unknown History Montelukast [Singulair] 10 mg PO QPM 11/03/14 01/06/15 Unknown History metFORMIN [Glucophage] 1,000 mg PO BID 11/03/14 01/06/15 Unknown History Aspirin EC [Aspirin Enteric Coated 325 mg PO QDAY #30 tablet 11/04/14 01/06/15 Unknown Rx TAB] Furosemide [Lasix TAB] 80 mg PO QDAY 01/06/15 01/06/15 Unknown History HYDROcodone/APAP 5-325 [[place] 1 each PO Q6HR PRN 01/06/15 01/06/15 Unknown History 5-325 mg TAB] HYDROcodone/APAP 5-325 [[place] 1 each PO Q6HR PRN #10 tablet 01/06/15 Unknown Rx 5-325 mg TAB] Loratadine [Claritin] 10 mg PO DAILY 01/06/15 01/06/15 Unknown History Omeprazole [PriLOSEC] 40 mg PO QDAY 01/06/15 01/06/15 Unknown History traMADol [Ultram 50 MG tab] 50 mg PO Q8HR PRN 01/06/15 01/06/15 Unknown History HYDROcodone/APAP 5-325 [[place] 1 each PO Q6HR PRN #14 tablet 02/01/15 Unknown Rx 5/325] Acetaminophen/Codeine [Tylenol #3] 1 tab PO Q6H PRN #10 tab 05/09/15 Unknown Rx Azithromycin [Zithromax Z-TIFFANIE] 250 mg PO DAILY #6 tab 05/09/15 Unknown Rx Fluticasone [Flonase] 1 spray NS QDAY #1 bottle 05/09/15 Unknown Rx guaiFENesin DM [Robitussin Dm] 5 ml PO Q6HR #120 udc 05/09/15 Unknown Rx methOCARBAMOL [Robaxin TAB] 500 mg PO BID #20 tab 06/13/15 Unknown Rx traMADol [Ultram 50 MG tab] 50 mg PO Q6HR PRN #21 tablet 06/13/15 Unknown Rx HYDROcodone/APAP 5-325 [[place] 1 - 2 each PO Q6HR PRN #10 tablet 08/15/15 Unknown Rx 5-325 mg TAB] Phenazopyridine [Pyridium] 200 mg PO TID #6 tab 06/25/16 Unknown Rx Ciprofloxacin HCl [Ciprofloxacin 500 mg PO Q12HR #14 tab 11/29/16 Unknown Rx TAB] Acetaminophen/Codeine [Tylenol 1 tab PO Q6H PRN #14 tab 12/18/16 Unknown Rx /Codeine # 3 tab] Ibuprofen [Motrin] 600 mg PO Q8H PRN #30 tablet 01/05/17 Unknown Rx traMADol [Ultram 50 MG tab] 50 mg PO Q6HR PRN #20 tablet 01/05/17 Unknown Rx Cyclobenzaprine [Flexeril 10 MG 10 mg PO QHS PRN #20 tablet 06/04/17 Unknown Rx TAB] Naproxen [Naprosyn TAB] 500 mg PO BID #30 tablet 06/04/17 Unknown Rx Naproxen [Naprosyn] 500 mg PO TID #9 tablet 05/24/18 Unknown Rx ED Physical Exam - General Limitations: No Limitations General appearance: alert, in no apparent distress, obese - Respiratory Respiratory exam: Present: normal lung sounds bilaterally. Absent: respiratory distress - Cardiovascular Cardiovascular Exam: Present: regular rate, normal rhythm. Absent: systolic murmur, diastolic murmur, rubs, gallop - GI/Abdominal GI/Abdominal exam: Present: soft, normal bowel sounds - Expanded Upper Extremity Exam Left Shoulder Exam: Present: normal inspection, full ROM Upper Arm exam: Present: normal inspection, full ROM Elbow exam: Present: normal inspection, full ROM Forearm Wrist exam: Present: normal inspection, full ROM Hand Wrist exam: Present: full ROM (painful range of motion,), tenderness (tenderness in the PIP joint). Absent: swelling, abrasion, laceration, ecchymosis, deformity, crepidus, dislocation, erythema, amputation, nail avulsion Neuro motor exam: Present: wrist extension intact, thumb opposition intact, thumb IP flexion intact, thumb adduction intact, fingers 2-5 abduction intact Neurosensory exam: Present: radial nerve intact, median nerve intact Vascular: Present: normal capillary refill, radial pulse (+2) - Neurological Exam Neurological exam: Present: alert, oriented X3 - Psychiatric Psychiatric exam: Present: normal affect, normal mood - Skin Skin exam: Present: warm, dry, intact, normal color. Absent: rash ED Course Vital Signs 05/24/18 10:12 Temperature 98.7 F Pulse Rate 87 Respiratory 22 Rate Blood Pressure 122/74 O2 Sat by Pulse 97 Oximetry ED Medical Decision Making - Radiology Data Radiology results: report reviewed LEFT FINGERS, 3 VIEWS History: Left thumb pain. Findings: Normal bone mineralization. No acute osseous injury or joint pathology is identified. The soft tissues are within normal limits. Impression: Unremarkable left fingers. - Medical Decision Making Patient was examined by me. Vitals are normal and patient is in no acute distress. Given tramadol 50 mg by mouth once linear. Obtained x-ray of left fingers. X-rays dictated by radiologist and report reviewed by myself. Unremarkable left fingers. Finger injury. A finger splint was applied to the left first digit. Patient informed of results. Start naproxen for pain. Referr al to orthopedics surgeon. Patient discharged home in stable condition. Follow up with PCP in 2-3 days. Critical care attestation.: If time is entered above; I have spent that time in minutes in the direct care of this critically ill patient, excluding procedure time. ED Disposition Clinical Impression: Muscle strain of finger of left hand Finger injury Qualifiers: Encounter type: initial encounter Laterality: left Qualified Code(s): S69.92XA - Unspecified injury of left wrist, hand and finger(s), initial encounter Disposition: TO HOME OR SELFCARE Is pt being admited?: No Does the pt Need Aspirin: No Condition: Stable Instructions: Shane Arndt (ED) Additional Instructions: Follow-up with an orthopedic surgeon. Take pain medication every 6 hours as needed for pain. Prescriptions: Naproxen [Naprosyn] 500 mg PO TID #9 tablet Referrals: ALISON MERRITT MD [Staff Physician] - 3-5 Days [facility] [Provider Group] - 3-5 Days Time of Disposition: 14:17
[2018-05-24] MEDS ORDERED: ULTRAM PO ONE (13:49)
--- NOTE | 2018-05-24 13:52 | XRay Report ---
LEFT FINGERS, 3 VIEWS History: Left thumb pain. Findings: Normal bone mineralization. No acute osseous injury or joint pathology is identified. The soft tissues are within normal limits. Impression: Unremarkable left fingers.
[2018-05-24] MEDS ORDERED: IBUPROFEN PO ONE (15:04)
== END 2018-05-24 14:30 | disposition home or self-care (01) ==
LOC: ED 10:04
DX: S56.312A Strain of extensor or abductor muscles, fascia and tendons of left thumb at forearm level, initial encounter (principal); I10 Essential (primary) hypertension; E11.9 Type 2 diabetes mellitus without complications; M19.90 Unspecified osteoarthritis, unspecified site; J44.9 Chronic obstructive pulmonary disease, unspecified; Z96.641 Presence of right artificial hip joint; Z79.4 Long term (current) use of insulin; Z88.8 Allergy status to other drugs, medicaments and biological substances; X58.XXXA Exposure to other specified factors, initial encounter; Y93.72 Activity, wrestling; Y92.099 Unspecified place in other non-institutional residence as the place of occurrence of the external cause; Y99.8 Other external cause status
CPT/HCPCS: 99283

== ENCOUNTER 2019-03-17 03:26 | Emergency (ER) | payer MEDICAID ==
[2019-03-17 04:31] LABS: Basophils # (Auto) 0.1 K/mm3 (0.0-0.1); Basophils % (Auto) 0.9 % (0.0-1.8); Eosinophils # (Auto) 0.1 K/mm3 (0.0-0.4); Eosinophils % (Auto) 1.2 % (0.0-4.3); Hematocrit 42.7 % (35.5-45.6); Hemoglobin 14.2 gm/dl (11.8-15.2); Lymphocytes # (Auto) 2.3 K/mm3 (1.2-5.4); Lymphocytes % (Auto) 34.9 % (13.4-35.0); Mean Corpuscular HGB Conc 33 % (32-34); Mean Corpuscular Volume 95 fl (84-94); Monocytes # (Auto) 0.7 K/mm3 (0.0-0.8); Monocytes % (Auto) 10.6 % (0.0-7.3); Platelet Count 215 K/mm3 (140-440); Red Blood Count 4.52 M/mm3 (3.65-5.03); Red Cell Distribution Width 13.7 % (13.2-15.2)
[2019-03-17 04:51] LABS: Alanine Aminotransferase 53 units/L (7-56); Albumin 3.7 g/dL (3.9-5); BUN/Creatinine Ratio 14; Blood Urea Nitrogen 15 mg/dL (9-20); Calcium 9.4 mg/dL (8.4-10.2); Hemolysis Index 5
[2019-03-17] MEDS ORDERED: SODIUM CHLORIDE 0.9% 1000 ML 1,000 ML IV ONE (04:52)
[2019-03-17] MEDS ORDERED: fentaNYL 100 MCG/2 ML INJ IV ONE (05:06)
[2019-03-17] MEDS ORDERED: ONDANSETRON 4 MG/2 ML INJ IV ONE (05:06)
[2019-03-17 05:22] LABS: Bacteria,Urine 1+ /HPF (Negative); Bilirubin,Urine NEG (Negative); Blood,Urine NEG (Negative); Color,Urine Yellow (Yellow); Mucus,Urine FEW /HPF; Protein,Urine <15 mg/dL mg/dL (Negative); WBC,Urine < 1.0 /HPF (0.0-6.0)
--- NOTE | 2019-03-17 06:01 | Cat Scan Report ---
CT ABDOMEN AND PELVIS WITH CONTRAST INDICATION: Upper abdominal pain CONTRAST: 100 cc Omnipaque 300 IV COMPARISON: 11/03/2014, report unavailable All CT scans at this location are performed using CT dose reduction for ALARA by means of automated e xposure control. NOTE: Resolution is decreased and artifact is introduced by the patient's size. FINDINGS: Mild bibasilar scarring is seen. No pneumoperitoneum is noted. Prominent fatty infiltration of the liver seen without obvious focal lesion. Liver appears mildly enlarged by volume though lengt h is only 16.1 cm. Spleen appears within normal limits. No urinary obstructive changes are seen. Tiny left renal cyst is noted. Gallbladder and bile ducts appear within normal limits. Pancreas shows no abnormalities. Appendix appears within normal limits. No significant abdominal wall herniation is see n. Right hip prosthesis causes artifact in the lower pelvis. No free fluid is seen. Laboratory change s are noted. No other masses are seen. No lymphadenopathy is noted. IMPRESSION: No acute abnormalities are seen Signer Name: John Garrison MD Signed: 03/17/2019 5:57 AM Workstation Name: [id number]
[2019-03-17 07:00] VITALS: BP 140/84
--- NOTE | 2019-03-17 07:03 | Emergency Department Report ---
ED Abdominal Pain HPI - General Chief Complaint: Abdominal Pain Stated Complaint: ABDOMINAL PAIN Time Seen by Provider: 03/17/19 06:40 Source: patient Mode of arrival: Ambulatory Limitations: No Limitations - History of Present Illness Initial Comments: Patient is a 63-year-old male that presents emergency room with complaints of abdominal pain 2 weeks. Patient states his abdominal pain is in his epigastric region and is a 4 out of 10. Patient states that his pain is better with rest and worse with eating and movement. Patient denies fever or chills. Patient denies nausea vomiting. Patient denies blood per rectum. Patient denies chest pain shortness of breath. Patient denies alcohol intake. Patient denies NSAIDs intake. Patient complains of burping and epigastric fullness. MD Complaint: abdominal pain -: Sudden Location: epigastric Radiation: none Migration to: no migration Severity scale (0 -10): 4 Quality: aching Consistency: constant Improves With: rest Worsens With: eating, movement Associated Symptoms: denies other symptoms. denies: nausea, vomiting, diarrhea, fever, chills, constipation, dysuria, hematemesis, hematochezia, melena, hematuria, anorexia, syncope - Related Data Home Medications Medication Instructions Recorded Confirmed Last Taken Insulin NPH/Regular [NovoLIN 70/30] 85 units SUB-Q BID 01/25/13 01/06/15 01/25/13 08:00 ALBUTEROL Inhaler (OR & NICU) 2 puff IH QID PRN 11/03/14 01/06/15 Unknown [ProAir HFA Inhaler] Metoprolol [Lopressor TAB] 50 mg PO DAILY 11/03/14 01/06/15 Unknown Montelukast [Singulair] 10 mg PO QPM 11/03/14 01/06/15 Unknown metFORMIN [Glucophage] 1,000 mg PO BID 11/03/14 01/06/15 Unknown Furosemide [Lasix TAB] 80 mg PO QDAY 01/06/15 01/06/15 Unknown HYDROcodone/APAP 5-325 [Yoder 1 each PO Q6HR PRN 01/06/15 01/06/15 Unknown 5-325 mg TAB] Loratadine [Claritin] 10 mg PO DAILY 01/06/15 01/06/15 Unknown Omeprazole [PriLOSEC] 40 mg PO QDAY 01/06/15 01/06/15 Unknown traMADol [Ultram 50 MG tab] 50 mg PO Q8HR PRN 01/06/15 01/06/15 Unknown Previous Rx's Medication Instructions Recorded Last Taken Type Aspirin EC 325 mg PO QDAY #30 tablet 11/04/14 Unknown Rx HYDROcodone/APAP 5-325 [Yoder 1 each PO Q6HR PRN #10 tablet 01/06/15 Unknown Rx 5-325 mg TAB] HYDROcodone/APAP 5-325 [Yoder 1 each PO Q6HR PRN #14 tablet 02/01/15 Unknown Rx 5/325] Acetaminophen/Codeine [Tylenol #3] 1 tab PO Q6H PRN #10 tab 05/09/15 Unknown Rx Azithromycin [Zithromax Z-TIFFANIE] 250 mg PO DAILY #6 tab 05/09/15 Unknown Rx Fluticasone [Flonase] 1 spray NS QDAY #1 bottle 05/09/15 Unknown Rx guaiFENesin DM [Robitussin Dm] 5 ml PO Q6HR #120 udc 05/09/15 Unknown Rx methOCARBAMOL [Robaxin TAB] 500 mg PO BID #20 tab 06/13/15 Unknown Rx traMADol [Ultram 50 MG tab] 50 mg PO Q6HR PRN #21 tablet 06/13/15 Unknown Rx HYDROcodone/APAP 5-325 [Yoder 1 - 2 each PO Q6HR PRN #10 tablet 08/15/15 Unknown Rx 5-325 mg TAB] Phenazopyridine [Pyridium] 200 mg PO TID #6 tab 06/25/16 Unknown Rx Ciprofloxacin HCl [Ciprofloxacin 500 mg PO Q12HR #14 tab 11/29/16 Unknown Rx TAB] Acetaminophen/Codeine [Tylenol 1 tab PO Q6H PRN #14 tab 12/18/16 Unknown Rx /Codeine # 3 tab] Ibuprofen [Motrin] 600 mg PO Q8H PRN #30 tablet 01/05/17 Unknown Rx traMADol [Ultram 50 MG tab] 50 mg PO Q6HR PRN #20 tablet 01/05/17 Unknown Rx Cyclobenzaprine [Flexeril 10 MG 10 mg PO QHS PRN #20 tablet 06/04/17 Unknown Rx TAB] Naproxen [Naprosyn TAB] 500 mg PO BID #30 tablet 06/04/17 Unknown Rx Naproxen [Naprosyn] 500 mg PO TID #9 tablet 05/24/18 Unknown Rx Esomeprazole Magnesium [NexIUM] 40 mg PO QDAY 30 Days #30 03/17/19 Unknown Rx capsule. Allergies Allergy/AdvReac Type Severity Reaction Status Date / Time lisinopril Allergy Itching Verified 12/18/16 11:04 metformin AdvReac Diarrhea Verified 12/18/16 11:05 ED Review of Systems ROS: Stated complaint: ABDOMINAL PAIN Other details as noted in HPI Constitutional: denies: chills, fever Eyes: denies: eye pain, eye discharge, vision change ENT: denies: ear pain, throat pain Respiratory: denies: cough, shortness of breath, wheezing Cardiovascular: denies: chest pain, palpitations Endocrine: no symptoms reported Gastrointestinal: abdominal pain. denies: nausea, diarrhea Genitourinary: denies: urgency, dysuria Musculoskeletal: denies: back pain, joint swelling, arthralgia Skin: denies: rash, lesions Neurological: denies: headache, weakness, paresthesias Psychiatric: denies: anxiety, depression Hematological/Lymphatic: denies: easy bleeding, easy bruising ED Past Medical Hx - Past Medical History Previous Medical History?: Yes Hx Hypertension: Yes Hx Diabetes: Yes Hx Arthritis: Yes Hx Asthma: Yes Hx COPD: Yes Additional medical history: ENLARGED HEART. NODULES ON LUNGS. SLEEP APNEA Uses a CPAP machine at night. OBESITY - Surgical History Past Surgical History?: Yes Additional Surgical History: Hip replacement - RIGHT. BACK ABLATION - Family History Family history: no significant - Social History Smoking Status: Never Smoker Substance Use Type: Alcohol - Medications Home Medications: Home Medications Medication Instructions Recorded Confirmed Last Taken Type Insulin NPH/Regular [NovoLIN 70/30] 85 units SUB-Q BID 01/25/13 01/06/15 01/25/13 08:00 History ALBUTEROL Inhaler (OR & NICU) 2 puff IH QID PRN 11/03/14 01/06/15 Unknown History [ProAir HFA Inhaler] Metoprolol [Lopressor TAB] 50 mg PO DAILY 11/03/14 01/06/15 Unknown History Montelukast [Singulair] 10 mg PO QPM 11/03/14 01/06/15 Unknown History metFORMIN [Glucophage] 1,000 mg PO BID 11/03/14 01/06/15 Unknown History Aspirin EC 325 mg PO QDAY #30 tablet 11/04/14 01/06/15 Unknown Rx Furosemide [Lasix TAB] 80 mg PO QDAY 01/06/15 01/06/15 Unknown History HYDROcodone/APAP 5-325 [Yoder 1 each PO Q6HR PRN 01/06/15 01/06/15 Unknown History 5-325 mg TAB] HYDROcodone/APAP 5-325 [Yoder 1 each PO Q6HR PRN #10 tablet 01/06/15 Unknown Rx 5-325 mg TAB] Loratadine [Claritin] 10 mg PO DAILY 01/06/15 01/06/15 Unknown History Omeprazole [PriLOSEC] 40 mg PO QDAY 01/06/15 01/06/15 Unknown History traMADol [Ultram 50 MG tab] 50 mg PO Q8HR PRN 01/06/15 01/06/15 Unknown History HYDROcodone/APAP 5-325 [Yoder 1 each PO Q6HR PRN #14 tablet 02/01/15 Unknown Rx 5/325] Acetaminophen/Codeine [Tylenol #3] 1 tab PO Q6H PRN #10 tab 05/09/15 Unknown Rx Azithromycin [Zithromax Z-TIFFANIE] 250 mg PO DAILY #6 tab 05/09/15 Unknown Rx Fluticasone [Flonase] 1 spray NS QDAY #1 bottle 05/09/15 Unknown Rx guaiFENesin DM [Robitussin Dm] 5 ml PO Q6HR #120 udc 05/09/15 Unknown Rx methOCARBAMOL [Robaxin TAB] 500 mg PO BID #20 tab 06/13/15 Unknown Rx traMADol [Ultram 50 MG tab] 50 mg PO Q6HR PRN #21 tablet 06/13/15 Unknown Rx HYDROcodone/APAP 5-325 [Yoder 1 - 2 each PO Q6HR PRN #10 tablet 08/15/15 Unknown Rx 5-325 mg TAB] Phenazopyridine [Pyridium] 200 mg PO TID #6 tab 06/25/16 Unknown Rx Ciprofloxacin HCl [Ciprofloxacin 500 mg PO Q12HR #14 tab 11/29/16 Unknown Rx TAB] Acetaminophen/Codeine [Tylenol 1 tab PO Q6H PRN #14 tab 12/18/16 Unknown Rx /Codeine # 3 tab] Ibuprofen [Motrin] 600 mg PO Q8H PRN #30 tablet 01/05/17 Unknown Rx traMADol [Ultram 50 MG tab] 50 mg PO Q6HR PRN #20 tablet 01/05/17 Unknown Rx Cyclobenzaprine [Flexeril 10 MG 10 mg PO QHS PRN #20 tablet 06/04/17 Unknown Rx TAB] Naproxen [Naprosyn TAB] 500 mg PO BID #30 tablet 06/04/17 Unknown Rx Naproxen [Naprosyn] 500 mg PO TID #9 tablet 05/24/18 Unknown Rx Esomeprazole Magnesium [NexIUM] 40 mg PO QDAY 30 Days #30 03/17/19 Unknown Rx capsule. ED Physical Exam - General Limitations: No Limitations General appearance: alert, in no apparent distress - Head Head exam: Present: atraumatic, normocephalic - Eye Eye exam: Present: normal appearance - ENT ENT exam: Present: mucous membranes moist - Neck Neck exam: Present: normal inspection - Respiratory Respiratory exam: Present: normal lung sounds bilaterally. Absent: respiratory distress - Cardiovascular Cardiovascular Exam: Present: regular rate, normal rhythm. Absent: systolic murmur, diastolic murmur, rubs, gallop - GI/Abdominal GI/Abdominal exam: Present: soft, normal bowel sounds. Absent: distended, tenderness, guarding - Rectal Rectal exam: Present: deferred - Extremities Exam Extremities exam: Present: normal inspection - Back Exam Back exam: Present: normal inspection - Neurological Exam Neurological exam: Present: alert, oriented X3 - Psychiatric Psychiatric exam: Present: normal affect, normal mood - Skin Skin exam: Present: warm, dry, intact, normal color. Absent: rash ED Course Vital Signs 03/17/19 03/17/19 03/17/19 03:33 04:02 04:16 Temperature 97.7 F Pulse Rate 106 H 104 H 102 H Respiratory 20 18 18 Rate Blood Pressure 144/81 139/75 O2 Sat by Pulse 94 96 Oximetry 03/17/19 03/17/19 03/17/19 04:31 04:45 05:00 Temperature Pulse Rate 106 H 96 H 91 H Respiratory 16 20 18 Rate Blood Pressure 139/75 139/75 114/59 O2 Sat by Pulse 94 94 92 Oximetry 03/17/19 03/17/19 03/17/19 05:31 05:41 05:45 Temperature Pulse Rate 93 H 95 H Respiratory 18 22 22 Rate Blood Pressure 127/74 127/74 O2 Sat by Pulse 100 96 96 Oximetry 03/17/19 03/17/19 03/17/19 06:00 06:15 06:31 Temperature Pulse Rate 96 H 94 H 84 Respiratory 21 29 H 19 Rate Blood Pressure 140/84 140/84 140/84 O2 Sat by Pulse 86 92 95 Oximetry 03/17/19 03/17/19 03/17/19 06:45 07:00 07:15 Temperature Pulse Rate 89 81 83 Respiratory 29 H 26 H 19 Rate Blood Pressure 140/84 130/80 140/84 O2 Sat by Pulse 96 96 97 Oximetry - Reevaluation(s) Reevaluation #1: I discussed all results with patient. I discussed plan of care with patient. Patient agrees with plan of care. Patient will be discharged home. Patient stable for discharge. Patient given discharge instructions. Patient voiced understanding of discharge instructions. 03/17/19 07:47 ED Medical Decision Making - Lab Data Result diagrams: 03/17/19 03:42 03/17/19 03:42 - Radiology Data Radiology results: report reviewed CT ABDOMEN AND PELVIS WITH CONTRAST INDICATION: Upper abdominal pain CONTRAST: 100 cc Omnipaque 300 IV COMPARISON: 11/03/2014, report unavailable All CT scans at this location are performed using CT dose reduction for ALARA by means of automated exposure control. NOTE: Resolution is decreased and artifact is introduced by the patient's size. FINDINGS: Mild bibasilar scarring is seen. No pneumoperitoneum is noted. Prominent fatty infiltration of the liver seen without obvious focal lesion. Liver appears mildly enlarged by volume though length is only 16.1 cm. Spleen appears within normal limits. No urinary obstructive changes are seen. Tiny left renal cyst is noted. Gallbladder and bile ducts appear within normal limits. Pancreas shows no abnormalities. Appendix appears within normal limits. No significant abdominal wall herniation is seen. Right hip prosthesis causes artifact in the lower pelvis. No free fluid is seen. Laboratory changes are noted. No other masses are seen. No lymphadenopathy is noted. IMPRESSION: No acute abnormalities are seen - Medical Decision Making Patient is a 63-year-old male that presents emergency room with complaints of epigastric pain 2 weeks. Patient's labs unremarkable except for mildly elevated lipase. Patient's CT scan is negative. Patient's pain improved in the ER. Patient stable for discharge. Patient's clinical findings consistent with gastritis. Patient given Nexium. Patient given GI referral. Patient stable for discharge. Patient discharged home. - Differential Diagnosis gastritis. Epigastric pain. Pancreatitis. Critical care attestation.: If time is entered above; I have spent that time in minutes in the direct care of this critically ill patient, excluding procedure time. ED Disposition Clinical Impression: Elevated lipase Abdominal pain Qualifiers: Abdominal location: epigastric Qualified Code(s): R10.13 - Epigastric pain Gastritis Qualifiers: Gastritis type: unspecified gastritis Chronicity: acute Gastritis bleeding: without bleeding Qualified Code(s): K29.00 - Acute gastritis without bleeding Disposition: TO HOME OR SELFCARE Is pt being admited?: No Does the pt Need Aspirin: No Condition: Stable Instructions: Gastritis (ED), Diet for Ulcers and Gastritis (ED), Gastroesophageal Reflux Disease (ED) Additional Instructions: Patient to follow up with primary care in 2-3 days. Patient to follow up with GI in 2-3 days. Patient to return to ER if condition worsens. Patient to rest. Patient increase water. Patient to eat a reflux diet. Patient to take Tylenol when necessary for pain. Patient to avoid NSAIDs and Advil. Patient to avoid alcohol. Prescriptions: Esomeprazole Magnesium [NexIUM] 40 mg PO QDAY 30 Days #30 capsule. Referrals: PRIMARY MD ODIN [Primary Care Provider] - 2-3 Days RHONDA PEREZ MD [Staff Physician] - 2-3 Days Time of Disposition: 07:53
== END 2019-03-17 08:05 | disposition home or self-care (01) ==
LOC: ED 03:26
DX: K29.70 Gastritis, unspecified, without bleeding (principal); R74.8 Abnormal levels of other serum enzymes; I10 Essential (primary) hypertension; E11.9 Type 2 diabetes mellitus without complications; M19.90 Unspecified osteoarthritis, unspecified site; J44.9 Chronic obstructive pulmonary disease, unspecified
CPT/HCPCS: 36415; 74177; 80053; 81001; 83690; 85025; 96361; 96374; 96375; 99284; J2405; J3010; J7030; Q9967

== ENCOUNTER 2020-07-06 15:51 | Emergency (ER) | payer MEDICARE ==
[2020-07-06 16:04] VITALS: BP 126/68
--- NOTE | 2020-07-06 16:41 | Emergency Department Report ---
ED ENT HPI - General Chief complaint: Dental/Oral Stated complaint: MOUTH PAIN Time Seen by Provider: 07/06/20 16:37 Source: patient Mode of arrival: Ambulatory Limitations: No Limitations - History of Present Illness Initial comments: 65-year-old obese -[place] male in extensive past medical history presents to the emergency room for gum pain for 4 days. Patient states he is aware that he has a bad tooth. Patient also complains of a sore on his lower lip. Patient denies any fever chills. States he has not taken anything for his pain. Denies any facial swelling. Reports he does not have a dentist. And he is followed by [facility]. LOVE complaint: tooth pain Onset/Timin -: days(s) Location: tooth # (13) Severity: moderate Severity scale (0 -10): 5 Consistency: intermittent Improves with: none Worsens with: none Context- Dental: poor dental care Associated Symptoms: gum swelling - Related Data Home Medications Medication Instructions Recorded Confirmed Last Taken Insulin NPH/Regular [NovoLIN 70/30] 85 units SUB-Q BID 01/25/13 01/06/15 01/25/13 08:00 Albuterol Mdi (or & Nicu Only) 2 puff IH QID PRN 11/03/14 01/06/15 Unknown [ProAir HFA Inhaler] Metoprolol [Lopressor TAB] 50 mg PO DAILY 11/03/14 01/06/15 Unknown Montelukast [Singulair] 10 mg PO QPM 11/03/14 01/06/15 Unknown metFORMIN [Glucophage] 1,000 mg PO BID 11/03/14 01/06/15 Unknown Furosemide [Lasix TAB] 80 mg PO QDAY 01/06/15 01/06/15 Unknown HYDROcodone/APAP 5-325 [[place] 1 each PO Q6HR PRN 01/06/15 01/06/15 Unknown 5-325 mg TAB] Loratadine (Nf) [Claritin] 10 mg PO DAILY 01/06/15 01/06/15 Unknown Omeprazole [PriLOSEC] 40 mg PO QDAY 01/06/15 01/06/15 Unknown traMADoL [Ultram 50 MG tab] 50 mg PO Q8HR PRN 01/06/15 01/06/15 Unknown Previous Rx's Medication Instructions Recorded Last Taken Type Aspirin EC [Ecotrin] 325 mg PO QDAY #30 tablet 11/04/14 Unknown Rx HYDROcodone/APAP 5-325 [[place] 1 each PO Q6HR PRN #10 tablet 01/06/15 Unknown Rx 5-325 mg TAB] HYDROcodone/APAP 5-325 [[place] 1 each PO Q6HR PRN #14 tablet 02/01/15 Unknown Rx 5/325] Acetaminophen/Codeine [Tylenol #3] 1 tab PO Q6H PRN #10 tab 05/09/15 Unknown Rx Azithromycin [Zithromax Z-TIFFANIE] 250 mg PO DAILY #6 tab 05/09/15 Unknown Rx Fluticasone [Flonase] 1 spray NS QDAY #1 bottle 05/09/15 Unknown Rx guaiFENesin DM [Robitussin Dm] 5 ml PO Q6HR #120 udc 05/09/15 Unknown Rx methOCARBAMOL [Robaxin TAB] 500 mg PO BID #20 tab 06/13/15 Unknown Rx traMADoL [Ultram 50 MG tab] 50 mg PO Q6HR PRN #21 tablet 06/13/15 Unknown Rx HYDROcodone/APAP 5-325 [[place] 1 - 2 each PO Q6HR PRN #10 tablet 08/15/15 Unknown Rx 5-325 mg TAB] Phenazopyridine [Pyridium] 200 mg PO TID #6 tab 06/25/16 Unknown Rx Ciprofloxacin HCl [Ciprofloxacin 500 mg PO Q12HR #14 tab 11/29/16 Unknown Rx TAB] Acetaminophen/Codeine [Tylenol 1 tab PO Q6H PRN #14 tab 12/18/16 Unknown Rx /Codeine # 3 tab] Ibuprofen [Motrin] 600 mg PO Q8H PRN #30 tablet 01/05/17 Unknown Rx traMADoL [Ultram 50 MG tab] 50 mg PO Q6HR PRN #20 tablet 01/05/17 Unknown Rx Cyclobenzaprine [Flexeril 10 MG 10 mg PO QHS PRN #20 tablet 06/04/17 Unknown Rx TAB] Naproxen [Naprosyn TAB] 500 mg PO BID #30 tablet 06/04/17 Unknown Rx Naproxen [Naprosyn] 500 mg PO TID #9 tablet 05/24/18 Unknown Rx Esomeprazole Magnesium [NexIUM] 40 mg PO QDAY 30 Days #30 03/17/19 Unknown Rx capsule. Clindamycin [Clindamycin CAP] 300 mg PO Q8H 7 Days #28 cap 07/06/20 Unknown Rx Allergies Allergy/AdvReac Type Severity Reaction Status Date / Time lisinopril Allergy Itching Verified 07/06/20 16:02 metformin AdvReac Diarrhea Verified 07/06/20 16:02 ED Dental HPI - General Chief complaint: Dental/Oral Stated complaint: MOUTH PAIN Time Seen by Provider: 07/06/20 16:37 Source: patient Mode of arrival: Ambulatory Limitations: No Limitations - Related Data Home Medications Medication Instructions Recorded Confirmed Last Taken Insulin NPH/Regular [NovoLIN 70/30] 85 units SUB-Q BID 01/25/13 01/06/15 01/25/13 08:00 Albuterol Mdi (or & Nicu Only) 2 puff IH QID PRN 11/03/14 01/06/15 Unknown [ProAir HFA Inhaler] Metoprolol [Lopressor TAB] 50 mg PO DAILY 11/03/14 01/06/15 Unknown Montelukast [Singulair] 10 mg PO QPM 11/03/14 01/06/15 Unknown metFORMIN [Glucophage] 1,000 mg PO BID 11/03/14 01/06/15 Unknown Furosemide [Lasix TAB] 80 mg PO QDAY 01/06/15 01/06/15 Unknown HYDROcodone/APAP 5-325 [[place] 1 each PO Q6HR PRN 01/06/15 01/06/15 Unknown 5-325 mg TAB] Loratadine (Nf) [Claritin] 10 mg PO DAILY 01/06/15 01/06/15 Unknown Omeprazole [PriLOSEC] 40 mg PO QDAY 01/06/15 01/06/15 Unknown traMADoL [Ultram 50 MG tab] 50 mg PO Q8HR PRN 01/06/15 01/06/15 Unknown Previous Rx's Medication Instructions Recorded Last Taken Type Aspirin EC [Ecotrin] 325 mg PO QDAY #30 tablet 11/04/14 Unknown Rx HYDROcodone/APAP 5-325 [[place] 1 each PO Q6HR PRN #10 tablet 01/06/15 Unknown Rx 5-325 mg TAB] HYDROcodone/APAP 5-325 [[place] 1 each PO Q6HR PRN #14 tablet 02/01/15 Unknown Rx 5/325] Acetaminophen/Codeine [Tylenol #3] 1 tab PO Q6H PRN #10 tab 05/09/15 Unknown Rx Azithromycin [Zithromax Z-TIFFANIE] 250 mg PO DAILY #6 tab 05/09/15 Unknown Rx Fluticasone [Flonase] 1 spray NS QDAY #1 bottle 05/09/15 Unknown Rx guaiFENesin DM [Robitussin Dm] 5 ml PO Q6HR #120 udc 05/09/15 Unknown Rx methOCARBAMOL [Robaxin TAB] 500 mg PO BID #20 tab 06/13/15 Unknown Rx traMADoL [Ultram 50 MG tab] 50 mg PO Q6HR PRN #21 tablet 06/13/15 Unknown Rx HYDROcodone/APAP 5-325 [[place] 1 - 2 each PO Q6HR PRN #10 tablet 08/15/15 Unknown Rx 5-325 mg TAB] Phenazopyridine [Pyridium] 200 mg PO TID #6 tab 06/25/16 Unknown Rx Ciprofloxacin HCl [Ciprofloxacin 500 mg PO Q12HR #14 tab 11/29/16 Unknown Rx TAB] Acetaminophen/Codeine [Tylenol 1 tab PO Q6H PRN #14 tab 12/18/16 Unknown Rx /Codeine # 3 tab] Ibuprofen [Motrin] 600 mg PO Q8H PRN #30 tablet 01/05/17 Unknown Rx traMADoL [Ultram 50 MG tab] 50 mg PO Q6HR PRN #20 tablet 01/05/17 Unknown Rx Cyclobenzaprine [Flexeril 10 MG 10 mg PO QHS PRN #20 tablet 06/04/17 Unknown Rx TAB] Naproxen [Naprosyn TAB] 500 mg PO BID #30 tablet 06/04/17 Unknown Rx Naproxen [Naprosyn] 500 mg PO TID #9 tablet 05/24/18 Unknown Rx Esomeprazole Magnesium [NexIUM] 40 mg PO QDAY 30 Days #30 03/17/19 Unknown Rx capsule. Clindamycin [Clindamycin CAP] 300 mg PO Q8H 7 Days #28 cap 07/06/20 Unknown Rx Allergies Allergy/AdvReac Type Severity Reaction Status Date / Time lisinopril Allergy Itching Verified 07/06/20 16:02 metformin AdvReac Diarrhea Verified 07/06/20 16:02 ED Review of Systems ROS: Stated complaint: MOUTH PAIN Other details as noted in HPI Comment: All other systems reviewed and negative Constitutional: no symptoms reported ED Past Medical Hx - Past Medical History Hx Hypertension: Yes Hx Diabetes: Yes Hx Arthritis: Yes Hx Asthma: Yes Hx COPD: Yes Additional medical history: ENLARGED HEART. NODULES ON LUNGS. SLEEP APNEA Uses a CPAP machine at night. OBESITY - Surgical History Additional Surgical History: Hip replacement - RIGHT. BACK ABLATION - Social History Smoking Status: Never Smoker Substance Use Type: None - Medications Home Medications: Home Medications Medication Instructions Recorded Confirmed Last Taken Type Insulin NPH/Regular [NovoLIN 70/30] 85 units SUB-Q BID 01/25/13 01/06/15 01/25/13 08:00 History Albuterol Mdi (or & Nicu Only) 2 puff IH QID PRN 11/03/14 01/06/15 Unknown History [ProAir HFA Inhaler] Metoprolol [Lopressor TAB] 50 mg PO DAILY 11/03/14 01/06/15 Unknown History Montelukast [Singulair] 10 mg PO QPM 11/03/14 01/06/15 Unknown History metFORMIN [Glucophage] 1,000 mg PO BID 11/03/14 01/06/15 Unknown History Aspirin EC [Ecotrin] 325 mg PO QDAY #30 tablet 11/04/14 01/06/15 Unknown Rx Furosemide [Lasix TAB] 80 mg PO QDAY 01/06/15 01/06/15 Unknown History HYDROcodone/APAP 5-325 [[place] 1 each PO Q6HR PRN 01/06/15 01/06/15 Unknown History 5-325 mg TAB] HYDROcodone/APAP 5-325 [[place] 1 each PO Q6HR PRN #10 tablet 01/06/15 Unknown Rx 5-325 mg TAB] Loratadine (Nf) [Claritin] 10 mg PO DAILY 01/06/15 01/06/15 Unknown History Omeprazole [PriLOSEC] 40 mg PO QDAY 01/06/15 01/06/15 Unknown History traMADoL [Ultram 50 MG tab] 50 mg PO Q8HR PRN 01/06/15 01/06/15 Unknown History HYDROcodone/APAP 5-325 [[place] 1 each PO Q6HR PRN #14 tablet 02/01/15 Unknown Rx 5/325] Acetaminophen/Codeine [Tylenol #3] 1 tab PO Q6H PRN #10 tab 05/09/15 Unknown Rx Azithromycin [Zithromax Z-TIFFANIE] 250 mg PO DAILY #6 tab 05/09/15 Unknown Rx Fluticasone [Flonase] 1 spray NS QDAY #1 bottle 05/09/15 Unknown Rx guaiFENesin DM [Robitussin Dm] 5 ml PO Q6HR #120 udc 05/09/15 Unknown Rx methOCARBAMOL [Robaxin TAB] 500 mg PO BID #20 tab 06/13/15 Unknown Rx traMADoL [Ultram 50 MG tab] 50 mg PO Q6HR PRN #21 tablet 06/13/15 Unknown Rx HYDROcodone/APAP 5-325 [[place] 1 - 2 each PO Q6HR PRN #10 tablet 08/15/15 Unknown Rx 5-325 mg TAB] Phenazopyridine [Pyridium] 200 mg PO TID #6 tab 06/25/16 Unknown Rx Ciprofloxacin HCl [Ciprofloxacin 500 mg PO Q12HR #14 tab 11/29/16 Unknown Rx TAB] Acetaminophen/Codeine [Tylenol 1 tab PO Q6H PRN #14 tab 12/18/16 Unknown Rx /Codeine # 3 tab] Ibuprofen [Motrin] 600 mg PO Q8H PRN #30 tablet 01/05/17 Unknown Rx traMADoL [Ultram 50 MG tab] 50 mg PO Q6HR PRN #20 tablet 01/05/17 Unknown Rx Cyclobenzaprine [Flexeril 10 MG 10 mg PO QHS PRN #20 tablet 06/04/17 Unknown Rx TAB] Naproxen [Naprosyn TAB] 500 mg PO BID #30 tablet 06/04/17 Unknown Rx Naproxen [Naprosyn] 500 mg PO TID #9 tablet 05/24/18 Unknown Rx Esomeprazole Magnesium [NexIUM] 40 mg PO QDAY 30 Days #30 03/17/19 Unknown Rx capsule. Clindamycin [Clindamycin CAP] 300 mg PO Q8H 7 Days #28 cap 07/06/20 Unknown Rx ED Physical Exam - General Limitations: No Limitations General appearance: alert, obese - Head Head exam: Present: atraumatic, normocephalic - Eye Eye exam: Present: normal appearance - ENT ENT exam: Present: mucous membranes moist - Expanded ENT Exam Expanded Teeth exam: Present: dental caries, dental tenderness # (13). Absent: gingival enlargement - Neck Neck exam: Present: normal inspection, full ROM - Respiratory Respiratory exam: Absent: accessory muscle use - Cardiovascular Cardiovascular Exam: Present: regular rate, normal rhythm. Absent: systolic murmur, diastolic murmur, rubs, gallop - Back Exam Back exam: Present: full ROM - Neurological Exam Neurological exam: Present: alert, oriented X3 - Psychiatric Psychiatric exam: Present: normal affect, normal mood - Skin Skin exam: Present: warm, dry, intact, normal color. Absent: rash ED Course Vital Signs 07/06/20 16:04 Temperature 98.4 F Pulse Rate 104 H Respiratory 18 Rate Blood Pressure 126/68 O2 Sat by Pulse 95 Oximetry ED Medical Decision Making - Medical Decision Making 65-year-old obese -[place] male in extensive past medical history presents to the emergency room for gum pain for 4 days. Patient states he is aware that he has a bad tooth. Patient also complains of a sore on his lower lip. Patient denies any fever chills. States he has not taken anything for his pain. Denies any facial swelling. Reports he does not have a dentist. And he is followed by [facility]. Patient has an canker sore on his bottom lip. He has gum tenderness which is because his tooth #13 the roots are so long and very thin up against the roof that you are able to appreciate the roots that are hyperpigmented. We will treat patient with antibiotics and referred him to a dentist. Critical care attestation.: If time is entered above; I have spent that time in minutes in the direct care of this critically ill patient, excluding procedure time. ED Disposition Clinical Impression: Dental infection, Canker sores oral Disposition: DC- TO HOME OR SELFCARE Is pt being admited?: No Does the pt Need Aspirin: No Condition: Stable Instructions: Dental Abscess, Oral Ulcers Additional Instructions: Please complete antibiotics as prescribed. Tylenol or ibuprofen as needed for pain management. Follow-up with a dentist. Prescriptions: Clindamycin [Clindamycin CAP] 300 mg PO Q8H 7 Days #28 cap Referrals: PRIMARY CARE, [Primary Care Provider] - 3-5 Days [facility] [Outside] - 3-5 Days [facility] [Outside] - 3-5 Days [facility] [Outside] - 3-5 Days
== END 2020-07-06 17:06 | disposition home or self-care (01) ==
LOC: ED 15:51
DX: K04.7 Periapical abscess without sinus (principal); K12.0 Recurrent oral aphthae; I10 Essential (primary) hypertension; E11.9 Type 2 diabetes mellitus without complications; M19.91 Primary osteoarthritis, unspecified site; J44.9 Chronic obstructive pulmonary disease, unspecified; Z98.890 Other specified postprocedural states; Z79.899 Other long term (current) drug therapy; Z88.8 Allergy status to other drugs, medicaments and biological substances
CPT/HCPCS: 99282

== ENCOUNTER 2020-08-07 00:41 | Emergency (ER) | payer MEDICARE ==
[2020-08-07 00:50] VITALS: BP 132/79
--- NOTE | 2020-08-07 02:33 | Ultrasound Report ---
ULTRASOUND SCROTUM INDICATION: testicular pain. COMPARISON None available. FINDINGS -- RIGHT TESTIS: Size: 4.3 x 1.7 x 2.4 cm. Echotexture: Normal. Color Doppler Flow: Normal. Lesions: None. EPIDIDYMIS: Size: Normal. Echotexture: Normal. Color Doppler Flow: Normal. Lesions: None. Hydrocele: None. Varicocele: None. Additional Findings: None. FINDINGS -- LEFT TESTIS: Size: 3.3 x 2.1 x 2.4 cm. Echotexture: Normal. Color Doppler Flow: Normal. Lesions: None. EPIDIDYMIS: Size: Normal. Echotexture: Normal. Color Doppler Flow: Normal. Lesions: None. Hydrocele: None. Varicocele: None. Additional Findings: None. IMPRESSION: 1. No sonographic abnormality of the scrotum. Signer Name: Arnol Oliva MD Signed: 08/07/2020 2:28 AM Workstation Name: [id number]
[2020-08-07] MEDS ORDERED: HYDROcodone/ACETAMINOPHEN 5-325 MG TAB PO ONE (02:43)
[2020-08-07 02:50] LABS: Bilirubin,Urine NEG (Negative); Blood,Urine NEG (Negative); Color,Urine Yellow (Yellow); Mucus,Urine FEW /HPF; Protein,Urine <15 mg/dL mg/dL (Negative); Urobilinogen,Urine < 2.0 mg/dL (<2.0)
--- NOTE | 2020-08-07 05:17 | Emergency Department Report ---
ED General Adult HPI - General Chief complaint: Urogenital-Male Stated complaint: LEFT FLANK PAIN/TESTICULAR PAIN PUI?: No Time Seen by Provider: 08/07/20 02:42 Source: patient Mode of arrival: Ambulatory Limitations: No Limitations - History of Present Illness Initial comments: Patient is a 65-year-old -[place] male with a history of diabetes hypertension who presents for left testicular pain intermittent for last couple of months. Patient denies dysuria, freqeuncy , urgency or penile discharge. There has been no fever or chills, symptoms exacerbated by palpation and touch, symptom relieved by nothing. Severity scale (0 -10): 4 - Related Data Home Medications Medication Instructions Recorded Confirmed Last Taken Insulin NPH/Regular [NovoLIN 70/30] 85 units SUB-Q BID 01/25/13 01/06/15 01/25/13 08:00 Albuterol Mdi (or & Nicu Only) 2 puff IH QID PRN 11/03/14 01/06/15 Unknown [ProAir HFA Inhaler] Metoprolol [Lopressor TAB] 50 mg PO DAILY 11/03/14 01/06/15 Unknown Montelukast [Singulair] 10 mg PO QPM 11/03/14 01/06/15 Unknown metFORMIN [Glucophage] 1,000 mg PO BID 11/03/14 01/06/15 Unknown Furosemide [Lasix TAB] 80 mg PO QDAY 01/06/15 01/06/15 Unknown HYDROcodone/APAP 5-325 [[place] 1 each PO Q6HR PRN 01/06/15 01/06/15 Unknown 5-325 mg TAB] Loratadine (Nf) [Claritin] 10 mg PO DAILY 01/06/15 01/06/15 Unknown Omeprazole [PriLOSEC] 40 mg PO QDAY 01/06/15 01/06/15 Unknown traMADoL [Ultram 50 MG tab] 50 mg PO Q8HR PRN 01/06/15 01/06/15 Unknown Previous Rx's Medication Instructions Recorded Last Taken Type Aspirin EC [Ecotrin] 325 mg PO QDAY #30 tablet 11/04/14 Unknown Rx HYDROcodone/APAP 5-325 [[place] 1 each PO Q6HR PRN #10 tablet 01/06/15 Unknown Rx 5-325 mg TAB] HYDROcodone/APAP 5-325 [[place] 1 each PO Q6HR PRN #14 tablet 02/01/15 Unknown Rx 5/325] Acetaminophen/Codeine [Tylenol #3] 1 tab PO Q6H PRN #10 tab 05/09/15 Unknown Rx Azithromycin [Zithromax Z-TIFFANIE] 250 mg PO DAILY #6 tab 05/09/15 Unknown Rx Fluticasone [Flonase] 1 spray NS QDAY #1 bottle 05/09/15 Unknown Rx guaiFENesin DM [Robitussin Dm] 5 ml PO Q6HR #120 udc 05/09/15 Unknown Rx methOCARBAMOL [Robaxin TAB] 500 mg PO BID #20 tab 06/13/15 Unknown Rx traMADoL [Ultram 50 MG tab] 50 mg PO Q6HR PRN #21 tablet 06/13/15 Unknown Rx HYDROcodone/APAP 5-325 [[place] 1 - 2 each PO Q6HR PRN #10 tablet 08/15/15 Unknown Rx 5-325 mg TAB] Phenazopyridine [Pyridium] 200 mg PO TID #6 tab 06/25/16 Unknown Rx Ciprofloxacin HCl [Ciprofloxacin 500 mg PO Q12HR #14 tab 11/29/16 Unknown Rx TAB] Acetaminophen/Codeine [Tylenol 1 tab PO Q6H PRN #14 tab 12/18/16 Unknown Rx /Codeine # 3 tab] Ibuprofen [Motrin] 600 mg PO Q8H PRN #30 tablet 01/05/17 Unknown Rx traMADoL [Ultram 50 MG tab] 50 mg PO Q6HR PRN #20 tablet 01/05/17 Unknown Rx Cyclobenzaprine [Flexeril 10 MG 10 mg PO QHS PRN #20 tablet 06/04/17 Unknown Rx TAB] Naproxen [Naprosyn TAB] 500 mg PO BID #30 tablet 06/04/17 Unknown Rx Naproxen [Naprosyn] 500 mg PO TID #9 tablet 05/24/18 Unknown Rx Esomeprazole Magnesium [NexIUM] 40 mg PO QDAY 30 Days #30 03/17/19 Unknown Rx capsule. Clindamycin [Clindamycin CAP] 300 mg PO Q8H 7 Days #28 cap 07/06/20 Unknown Rx Acetaminophen/Codeine [Tylenol 1 tab PO Q6H PRN #12 tab 08/07/20 Unknown Rx /Codeine # 3 tab] Doxycycline Monohydrate 100 mg PO BID 10 Days #20 capsule 08/07/20 Unknown Rx Allergies Allergy/AdvReac Type Severity Reaction Status Date / Time lisinopril Allergy Itching Verified 07/06/20 16:02 metformin AdvReac Diarrhea Verified 07/06/20 16:02 ED Review of Systems ROS: Stated complaint: LEFT FLANK PAIN/TESTICULAR PAIN Other details as noted in HPI Constitutional: denies: chills, fever Eyes: denies: eye pain, eye discharge, vision change ENT: denies: ear pain, throat pain Respiratory: denies: cough, shortness of breath, wheezing Cardiovascular: denies: chest pain, palpitations Endocrine: no symptoms reported Gastrointestinal: denies: abdominal pain, nausea, vomiting, diarrhea Genitourinary: testicular pain. denies: urgency, dysuria, frequency, hematuria, discharge Musculoskeletal: denies: back pain, joint swelling, arthralgia Skin: denies: rash, lesions Neurological: as per HPI Psychiatric: denies: anxiety, depression Hematological/Lymphatic: denies: easy bleeding, easy bruising ED Past Medical Hx - Past Medical History Hx Hypertension: Yes Hx Diabetes: Yes Hx Arthritis: Yes Hx Asthma: Yes Hx COPD: Yes Additional medical history: ENLARGED HEART. NODULES ON LUNGS. SLEEP APNEA Uses a CPAP machine at night. OBESITY - Surgical History Additional Surgical History: Hip replacement - RIGHT. BACK ABLATION - Social History Smoking Status: Never Smoker Substance Use Type: None - Medications Home Medications: Home Medications Medication Instructions Recorded Confirmed Last Taken Type Insulin NPH/Regular [NovoLIN 70/30] 85 units SUB-Q BID 01/25/13 01/06/15 01/25/13 08:00 History Albuterol Mdi (or & Nicu Only) 2 puff IH QID PRN 11/03/14 01/06/15 Unknown History [ProAir HFA Inhaler] Metoprolol [Lopressor TAB] 50 mg PO DAILY 11/03/14 01/06/15 Unknown History Montelukast [Singulair] 10 mg PO QPM 11/03/14 01/06/15 Unknown History metFORMIN [Glucophage] 1,000 mg PO BID 11/03/14 01/06/15 Unknown History Aspirin EC [Ecotrin] 325 mg PO QDAY #30 tablet 11/04/14 01/06/15 Unknown Rx Furosemide [Lasix TAB] 80 mg PO QDAY 01/06/15 01/06/15 Unknown History HYDROcodone/APAP 5-325 [[place] 1 each PO Q6HR PRN 01/06/15 01/06/15 Unknown History 5-325 mg TAB] HYDROcodone/APAP 5-325 [[place] 1 each PO Q6HR PRN #10 tablet 01/06/15 Unknown Rx 5-325 mg TAB] Loratadine (Nf) [Claritin] 10 mg PO DAILY 01/06/15 01/06/15 Unknown History Omeprazole [PriLOSEC] 40 mg PO QDAY 01/06/15 01/06/15 Unknown History traMADoL [Ultram 50 MG tab] 50 mg PO Q8HR PRN 01/06/15 01/06/15 Unknown History HYDROcodone/APAP 5-325 [[place] 1 each PO Q6HR PRN #14 tablet 02/01/15 Unknown Rx 5/325] Acetaminophen/Codeine [Tylenol #3] 1 tab PO Q6H PRN #10 tab 05/09/15 Unknown Rx Azithromycin [Zithromax Z-TIFFANIE] 250 mg PO DAILY #6 tab 05/09/15 Unknown Rx Fluticasone [Flonase] 1 spray NS QDAY #1 bottle 05/09/15 Unknown Rx guaiFENesin DM [Robitussin Dm] 5 ml PO Q6HR #120 udc 05/09/15 Unknown Rx methOCARBAMOL [Robaxin TAB] 500 mg PO BID #20 tab 06/13/15 Unknown Rx traMADoL [Ultram 50 MG tab] 50 mg PO Q6HR PRN #21 tablet 06/13/15 Unknown Rx HYDROcodone/APAP 5-325 [[place] 1 - 2 each PO Q6HR PRN #10 tablet 08/15/15 Unknown Rx 5-325 mg TAB] Phenazopyridine [Pyridium] 200 mg PO TID #6 tab 06/25/16 Unknown Rx Ciprofloxacin HCl [Ciprofloxacin 500 mg PO Q12HR #14 tab 11/29/16 Unknown Rx TAB] Acetaminophen/Codeine [Tylenol 1 tab PO Q6H PRN #14 tab 12/18/16 Unknown Rx /Codeine # 3 tab] Ibuprofen [Motrin] 600 mg PO Q8H PRN #30 tablet 01/05/17 Unknown Rx traMADoL [Ultram 50 MG tab] 50 mg PO Q6HR PRN #20 tablet 01/05/17 Unknown Rx Cyclobenzaprine [Flexeril 10 MG 10 mg PO QHS PRN #20 tablet 06/04/17 Unknown Rx TAB] Naproxen [Naprosyn TAB] 500 mg PO BID #30 tablet 06/04/17 Unknown Rx Naproxen [Naprosyn] 500 mg PO TID #9 tablet 05/24/18 Unknown Rx Esomeprazole Magnesium [NexIUM] 40 mg PO QDAY 30 Days #30 03/17/19 Unknown Rx capsule. Clindamycin [Clindamycin CAP] 300 mg PO Q8H 7 Days #28 cap 07/06/20 Unknown Rx Acetaminophen/Codeine [Tylenol 1 tab PO Q6H PRN #12 tab 08/07/20 Unknown Rx /Codeine # 3 tab] Doxycycline Monohydrate 100 mg PO BID 10 Days #20 capsule 08/07/20 Unknown Rx ED Physical Exam - General Limitations: No Limitations General appearance: alert, in no apparent distress - Head Head exam: Present: atraumatic, normocephalic - Eye Eye exam: Present: normal appearance, EOMI Pupils: Present: normal accommodation - ENT ENT exam: Present: mucous membranes moist - Neck Neck exam: Present: normal inspection, full ROM. Absent: tenderness - Respiratory Respiratory exam: Present: normal lung sounds bilaterally. Absent: respiratory distress, wheezes, stridor, chest wall tenderness - Cardiovascular Cardiovascular Exam: Present: regular rate, normal rhythm, normal heart sounds. Absent: systolic murmur, diastolic murmur, rubs, gallop - GI/Abdominal GI/Abdominal exam: Present: soft, normal bowel sounds. Absent: distended, tenderness, guarding, rebound, rigid, bruit, hernia - Rectal Rectal exam: Present: deferred - exam: Present: testicular tenderness (left testicular tenderness to palpation, ), circumcision. Absent: urethral discharge, scrotal swelling, vertical testicular lie External exam: Present: normal external exam - Extremities Exam Extremities exam: Present: normal inspection, full ROM, normal capillary refill - Back Exam Back exam: Present: normal inspection, full ROM. Absent: tenderness, CVA tenderness (R), CVA tenderness (L) - Neurological Exam Neurological exam: Present: alert, oriented X3, CN II-XII intact, normal gait - Psychiatric Psychiatric exam: Present: normal affect, normal mood - Skin Skin exam: Present: warm, dry, intact, normal color. Absent: rash ED Course Vital Signs 08/07/20 00:45 Temperature 98.3 F Pulse Rate 93 H Respiratory 16 Rate Blood Pressure 132/79 O2 Sat by Pulse 97 Oximetry ED Medical Decision Making - Lab Data Labs 08/07/20 02:41 Urine Color Yellow Urine Turbidity Clear Urine pH 6.0 Ur Specific [place] 1.029 Urine Protein <15 mg/dl Urine Glucose (UA) >=500 Urine Ketones Neg Urine Blood Neg Urine Nitrite Neg Urine Bilirubin Neg Urine Urobilinogen < 2.0 Ur Leukocyte Esterase Neg Urine WBC (Auto) 1.0 Urine RBC (Auto) 1.0 U Epithel Cells (Auto) 1.0 Urine Mucus Few - Radiology Data Radiology results: report reviewed, image reviewed Ordering Physician: HARRY ESPINOZA MD Date of Service: 08/07/20 Procedure(s): US testicular doppler comp Accession Number(s): [id number] cc: HARRY ESPINOZA MD ULTRASOUND SCROTUM INDICATION: testicular pain. COMPARISON None available. FINDINGS -- RIGHT TESTIS: Size: 4.3 x 1.7 x 2.4 cm. Echotexture: Normal. Color Doppler Flow: Normal. Lesions: None. EPIDIDYMIS: Size: Normal. Echotexture: Normal. Color Doppler Flow: Normal. Lesions: None. Hydrocele: None. Varicocele: None. Additional Findings: None. FINDINGS -- LEFT TESTIS: Size: 3.3 x 2.1 x 2.4 cm. Echotexture: Normal. Color Doppler Flow: Normal. Lesions: None. EPIDIDYMIS: Size: Normal. Echotexture: Normal. Color Doppler Flow: Normal. Lesions: None. Hydrocele: None. Varicocele: None. Additional Findings: None. IMPRESSION: 1. No sonographic abnormality of the scrotum. Signer Name: Arnol Oliva MD Signed: 08/07/2020 2:28 AM Workstation Name: [id number] Transcribed By: TL Dictated By: Arnol Oliva MD Electronically Authenticated By: Arnol Oliva MD Signed Date/Time: 08/07/20227 DD/ 6 TD/TT: - Medical Decision Making US scrotum normal, pos testicular tenderness , no swelling, no penile dischare, plan: doxycylcline for orchitis, follow up with pcp in 2-3 days. pt verbalized agreement and understanding of discharge plan. Critical care attestation.: If time is entered above; I have spent that time in minutes in the direct care of this critically ill patient, excluding procedure time. ED Disposition Clinical Impression: Orchitis Disposition: DC-01 TO HOME OR SELFCARE Is pt being admited?: No Does the pt Need Aspirin: No Condition: Stable Instructions: Testicular Self-Exam, Orchitis Prescriptions: Doxycycline Monohydrate 100 mg PO BID 10 Days #20 capsule Acetaminophen/Codeine [Tylenol /Codeine # 3 tab] 1 tab PO Q6H PRN #12 tab PRN Reason: pain Referrals: FAWAD SOLIMAN MD [Staff Physician] - 3-5 Days RATNA CODY MD [Referring] - 3-5 Days Time of Disposition: 05:27
== END 2020-08-07 05:42 | disposition home or self-care (01) ==
LOC: ED 00:41
DX: N45.2 Orchitis (principal); I10 Essential (primary) hypertension; E11.9 Type 2 diabetes mellitus without complications; M19.90 Unspecified osteoarthritis, unspecified site; J44.9 Chronic obstructive pulmonary disease, unspecified; E66.9 Obesity, unspecified; Z68.36 Body mass index [BMI] 36.0-36.9, adult; Z79.899 Other long term (current) drug therapy; Z88.8 Allergy status to other drugs, medicaments and biological substances; Z98.890 Other specified postprocedural states
CPT/HCPCS: 81001; 93975

== ENCOUNTER 2020-08-15 04:38 | Emergency (ER) | payer MEDICARE ==
[2020-08-15 04:49] VITALS: BP 132/83
[2020-08-15] MEDS ORDERED: MORPHINE 4 MG/1 ML INJ IM STA (06:27)
--- NOTE | 2020-08-15 06:36 | Emergency Department Report ---
ED Back Pain/Injury HPI - General Chief Complaint: Extremity Injury, Lower Stated Complaint: LEFT HIP PAIN Time Seen by Provider: 08/15/20 06:26 Source: patient, EMS Limitations: Physical Limitation - History of Present Illness Initial Comments: 65-year-old -[place] male with past medical history of degenerative hip disease presents emerged department complaining of pain flareup to the left hip and requests assistance with analgesic control. MD Complaint: back pain -: Gradual Similar Symptoms Previously: Yes Place: home (Hip region) Radiation: left leg Severity: moderate, severe Consistency: constant Improves With: immobilization Worsens With: movement, sitting upright, walking Context: other (History of severe degenerative joint disease resulting in chronic chronic back pain and hip pain) Associated Symptoms: difficulty walking. denies: weakness, diaphoresis, incontinence, constipation, headaches, abdominal pain, loss of appetite, nausea/vomiting, rash, seizure, shortness of breath - Related Data Home Medications Medication Instructions Recorded Confirmed Last Taken Insulin NPH/Regular [NovoLIN 70/30] 85 units SUB-Q BID 01/25/13 01/06/15 08:00 Albuterol Mdi (or & Nicu Only) 2 puff IH QID PRN 11/03/14 01/06/15 Unknown [ProAir HFA Inhaler] Metoprolol [Lopressor TAB] 50 mg PO DAILY 11/03/14 01/06/15 Unknown Montelukast [Singulair] 10 mg PO QPM 11/03/14 01/06/15 Unknown metFORMIN [Glucophage] 1,000 mg PO BID 11/03/14 01/06/15 Unknown Furosemide [Lasix TAB] 80 mg PO QDAY 01/06/15 01/06/15 Unknown HYDROcodone/APAP 5-325 [[place] 1 each PO Q6HR PRN 01/06/15 01/06/15 Unknown 5-325 mg TAB] Loratadine (Nf) [Claritin] 10 mg PO DAILY 01/06/15 01/06/15 Unknown Omeprazole [PriLOSEC] 40 mg PO QDAY 01/06/15 01/06/15 Unknown traMADoL [Ultram 50 MG tab] 50 mg PO Q8HR PRN 01/06/15 01/06/15 Unknown Previous Rx's Medication Instructions Recorded Last Taken Type Aspirin EC [Ecotrin] 325 mg PO QDAY #30 tablet 11/04/14 Unknown Rx HYDROcodone/APAP 5-325 [[place] 1 each PO Q6HR PRN #10 tablet 01/06/15 Unknown Rx 5-325 mg TAB] HYDROcodone/APAP 5-325 [[place] 1 each PO Q6HR PRN #14 tablet 02/01/15 Unknown Rx 5/325] Acetaminophen/Codeine [Tylenol #3] 1 tab PO Q6H PRN #10 tab 05/09/15 Unknown Rx Azithromycin [Zithromax Z-TIFFANIE] 250 mg PO DAILY #6 tab 05/09/15 Unknown Rx Fluticasone [Flonase] 1 spray NS QDAY #1 bottle 05/09/15 Unknown Rx guaiFENesin DM [Robitussin Dm] 5 ml PO Q6HR #120 udc 05/09/15 Unknown Rx methOCARBAMOL [Robaxin TAB] 500 mg PO BID #20 tab 06/13/15 Unknown Rx traMADoL [Ultram 50 MG tab] 50 mg PO Q6HR PRN #21 tablet 06/13/15 Unknown Rx HYDROcodone/APAP 5-325 [[place] 1 - 2 each PO Q6HR PRN #10 tablet 08/15/15 Unknown Rx 5-325 mg TAB] Phenazopyridine [Pyridium] 200 mg PO TID #6 tab 06/25/16 Unknown Rx Ciprofloxacin HCl [Ciprofloxacin 500 mg PO Q12HR #14 tab 11/29/16 Unknown Rx TAB] Acetaminophen/Codeine [Tylenol 1 tab PO Q6H PRN #14 tab 12/18/16 Unknown Rx /Codeine # 3 tab] Ibuprofen [Motrin] 600 mg PO Q8H PRN #30 tablet 01/05/17 Unknown Rx traMADoL [Ultram 50 MG tab] 50 mg PO Q6HR PRN #20 tablet 01/05/17 Unknown Rx Cyclobenzaprine [Flexeril 10 MG 10 mg PO QHS PRN #20 tablet 06/04/17 Unknown Rx TAB] Naproxen [Naprosyn TAB] 500 mg PO BID #30 tablet 06/04/17 Unknown Rx Naproxen [Naprosyn] 500 mg PO TID #9 tablet 05/24/18 Unknown Rx Esomeprazole Magnesium [NexIUM] 40 mg PO QDAY 30 Days #30 03/17/19 Unknown Rx capsule. Clindamycin [Clindamycin CAP] 300 mg PO Q8H 7 Days #28 cap 07/06/20 Unknown Rx Acetaminophen/Codeine [Tylenol 1 tab PO Q6H PRN #12 tab 08/07/20 Unknown Rx /Codeine # 3 tab] Doxycycline Monohydrate 100 mg PO BID 10 Days #20 capsule 08/07/20 Unknown Rx Allergies Allergy/AdvReac Type Severity Reaction Status Date / Time lisinopril Allergy Itching Verified 07/06/20 16:02 metformin AdvReac Diarrhea Verified 07/06/20 16:02 ED Review of Systems ROS: Stated complaint: LEFT HIP PAIN Other details as noted in HPI Comment: All other systems reviewed and negative ED Past Medical Hx - Past Medical History Previous Medical History?: Yes Hx Hypertension: Yes Hx Diabetes: Yes Hx Arthritis: Yes Hx Asthma: Yes Hx COPD: Yes Additional medical history: ENLARGED HEART. NODULES ON LUNGS. SLEEP APNEA Uses a CPAP machine at night. brain aneurism. AVM. - Surgical History Past Surgical History?: Yes Additional Surgical History: Hip replacement - RIGHT. BACK ABLATION - Social History Smoking Status: Never Smoker Substance Use Type: Alcohol - Medications Home Medications: Home Medications Medication Instructions Recorded Confirmed Last Taken Type Insulin NPH/Regular [NovoLIN 70/30] 85 units SUB-Q BID 01/25/13 01/06/15 01/25/13 08:00 History Albuterol Mdi (or & Nicu Only) 2 puff IH QID PRN 11/03/14 01/06/15 Unknown History [ProAir HFA Inhaler] Metoprolol [Lopressor TAB] 50 mg PO DAILY 11/03/14 01/06/15 Unknown History Montelukast [Singulair] 10 mg PO QPM 11/03/14 01/06/15 Unknown History metFORMIN [Glucophage] 1,000 mg PO BID 11/03/14 01/06/15 Unknown History Aspirin EC [Ecotrin] 325 mg PO QDAY #30 tablet 11/04/14 01/06/15 Unknown Rx Furosemide [Lasix TAB] 80 mg PO QDAY 01/06/15 01/06/15 Unknown History HYDROcodone/APAP 5-325 [[place] 1 each PO Q6HR PRN 01/06/15 01/06/15 Unknown History 5-325 mg TAB] HYDROcodone/APAP 5-325 [[place] 1 each PO Q6HR PRN #10 tablet 01/06/15 Unknown Rx 5-325 mg TAB] Loratadine (Nf) [Claritin] 10 mg PO DAILY 01/06/15 01/06/15 Unknown History Omeprazole [PriLOSEC] 40 mg PO QDAY 01/06/15 01/06/15 Unknown History traMADoL [Ultram 50 MG tab] 50 mg PO Q8HR PRN 01/06/15 01/06/15 Unknown History HYDROcodone/APAP 5-325 [[place] 1 each PO Q6HR PRN #14 tablet 02/01/15 Unknown Rx 5/325] Acetaminophen/Codeine [Tylenol #3] 1 tab PO Q6H PRN #10 tab 05/09/15 Unknown Rx Azithromycin [Zithromax Z-TIFFANIE] 250 mg PO DAILY #6 tab 05/09/15 Unknown Rx Fluticasone [Flonase] 1 spray NS QDAY #1 bottle 05/09/15 Unknown Rx guaiFENesin DM [Robitussin Dm] 5 ml PO Q6HR #120 udc 05/09/15 Unknown Rx methOCARBAMOL [Robaxin TAB] 500 mg PO BID #20 tab 06/13/15 Unknown Rx traMADoL [Ultram 50 MG tab] 50 mg PO Q6HR PRN #21 tablet 06/13/15 Unknown Rx HYDROcodone/APAP 5-325 [[place] 1 - 2 each PO Q6HR PRN #10 tablet 08/15/15 Unknown Rx 5-325 mg TAB] Phenazopyridine [Pyridium] 200 mg PO TID #6 tab 06/25/16 Unknown Rx Ciprofloxacin HCl [Ciprofloxacin 500 mg PO Q12HR #14 tab 11/29/16 Unknown Rx TAB] Acetaminophen/Codeine [Tylenol 1 tab PO Q6H PRN #14 tab 12/18/16 Unknown Rx /Codeine # 3 tab] Ibuprofen [Motrin] 600 mg PO Q8H PRN #30 tablet 01/05/17 Unknown Rx traMADoL [Ultram 50 MG tab] 50 mg PO Q6HR PRN #20 tablet 01/05/17 Unknown Rx Cyclobenzaprine [Flexeril 10 MG 10 mg PO QHS PRN #20 tablet 06/04/17 Unknown Rx TAB] Naproxen [Naprosyn TAB] 500 mg PO BID #30 tablet 06/04/17 Unknown Rx Naproxen [Naprosyn] 500 mg PO TID #9 tablet 05/24/18 Unknown Rx Esomeprazole Magnesium [NexIUM] 40 mg PO QDAY 30 Days #30 03/17/19 Unknown Rx capsule. Clindamycin [Clindamycin CAP] 300 mg PO Q8H 7 Days #28 cap 07/06/20 Unknown Rx Acetaminophen/Codeine [Tylenol 1 tab PO Q6H PRN #12 tab 08/07/20 Unknown Rx /Codeine # 3 tab] Doxycycline Monohydrate 100 mg PO BID 10 Days #20 capsule 08/07/20 Unknown Rx ED Physical Exam - General Limitations: Physical Limitation General appearance: alert, in no apparent distress - Head Head exam: Present: atraumatic, normocephalic - Eye Eye exam: Present: normal appearance, PERRL, EOMI - ENT ENT exam: Present: mucous membranes moist - Neck Neck exam: Present: normal inspection - Respiratory Respiratory exam: Present: normal lung sounds bilaterally. Absent: respiratory distress - Cardiovascular Cardiovascular Exam: Present: regular rate, normal rhythm. Absent: systolic murmur, diastolic murmur, rubs, gallop - GI/Abdominal GI/Abdominal exam: Present: soft, normal bowel sounds - Rectal Rectal exam: Present: deferred - Extremities Exam Extremities exam: Present: normal inspection, tenderness - Expanded Lower Extremity Exam Left Hip exam: Present: tenderness. Absent: swelling, ecchymosis, deformity, dislocation, erythema, external rotation, internal rotation, shortening, pelvic stability Upper Leg exam: Absent: normal inspection Knee exam: Absent: normal inspection, tenderness Lower Leg exam: Absent: normal inspection 1 - Tenderness to the area with palpation tenderness along the left sacroiliac joint. - Back Exam Back exam: Present: normal inspection, vertebral tenderness. Absent: CVA tenderness (R), CVA tenderness (L) - Expanded Back Exam Expanded Back exam: Sciatic Notch Tenderness: Left - Neurological Exam Neurological exam: Present: alert, oriented X3 - Psychiatric Psychiatric exam: Present: normal affect, normal mood - Skin Skin exam: Present: warm, dry, intact, normal color. Absent: rash ED Course Vital Signs 08/15/20 04:43 Temperature 98.5 F Pulse Rate 109 H Respiratory 16 Rate Blood Pressure 132/83 O2 Sat by Pulse 94 Oximetry ED Medical Decision Making - Medical Decision Making 55-year-old [place] male with chronic recurrent hip pain and and emergency department tonight for acute on chronic hip pain which she reports usually is resolved with an injection of analgesic pain medication. He is not requesting any prescription states he has eye doctor who can manage that but that this serg kthrough pain has been uncomfortable this past few days. Reports no loss of bowel bladder, no saddle paresthesia no lower extremity weakness. Critical care attestation.: If time is entered above; I have spent that time in minutes in the direct care of this critically ill patient, excluding procedure time. ED Disposition Clinical Impression: Lumbago with sciatica, left side, Back pain Disposition: TO HOME OR SELFCARE Is pt being admited?: No Does the pt Need Aspirin: No Condition: Stable Instructions: Radicular Pain, Sciatica Referrals: PRIMARY CARE, [Primary Care Provider] - 3-5 Days
== END 2020-08-15 06:57 | disposition home or self-care (01) ==
LOC: ED 04:38
DX: M54.42 Lumbago with sciatica, left side (principal); I10 Essential (primary) hypertension; E11.9 Type 2 diabetes mellitus without complications; M19.91 Primary osteoarthritis, unspecified site; J44.9 Chronic obstructive pulmonary disease, unspecified; Z98.890 Other specified postprocedural states; Z79.899 Other long term (current) drug therapy; Z88.8 Allergy status to other drugs, medicaments and biological substances
CPT/HCPCS: 82962; 96372; 99283; J2270

== ENCOUNTER 2020-09-06 07:00 | Emergency (ER) | payer MEDICARE | END 2020-09-06 07:10 | LOC: ED 07:00 | DX: M25.552 Pain in left hip (principal); Z53.21 Procedure and treatment not carried out due to patient leaving prior to being seen by health care provider ==

== ENCOUNTER 2020-09-18 07:55 | Emergency (ER) | payer MEDICARE ==
[2020-09-18 08:36] VITALS: BP 117/65
--- NOTE | 2020-09-18 08:36 | Event Note ---
ED Screening Note ED Screening Note: 62 YO AA COUGH, PRODUCTIVE DM COPD DENIES CP POS SOB GOT COVID IMMUNIZATION HIGH RISK GIVEN COMORBID This initial assessment/diagnostic orders/clinical plan/treatment(s) is/are subject to change based on patients health status, clinical progression and re- assessment by fellow clinical providers in the ED. Further treatment and workup at subsequent clinical providers discretion. Patient/guardian urged not to elope from the ED as their condition may be serious if not clinically assessed and managed. Initial orders include: RO ACS
[2020-09-18 09:25] LABS: Basophils % (Auto) 0.3 % (0.0-1.8); Eosinophils # (Auto) 0.1 K/mm3 (0.0-0.4); Eosinophils % (Auto) 1.9 % (0.0-4.3); Hematocrit 44.7 % (35.5-45.6); Hemoglobin 14.7 gm/dl (11.8-15.2); Lymphocytes # (Auto) 1.9 K/mm3 (1.2-5.4); Lymphocytes % (Auto) 39.1 % (13.4-35.0); Mean Corpuscular HGB Conc 33 % (32-34); Mean Corpuscular Volume 95 fl (84-94); Monocytes # (Auto) 0.6 K/mm3 (0.0-0.8); Monocytes % (Auto) 12.1 % (0.0-7.3); Platelet Count 184 K/mm3 (140-440); Red Blood Count 4.69 M/mm3 (3.65-5.03)
--- NOTE | 2020-09-18 09:31 | XRay Report ---
CHEST 2 VIEWS INDICATION / CLINICAL INFORMATION: sob. COMPARISON: None available. FINDINGS: SUPPORT DEVICES: None. HEART / MEDIASTINUM: No significant abnormality. LUNGS / PLEURA: Minimal atelectasis in lower lung. Small area of increased density in the right upper lung may represent atelectasis, nonspecific. No pneumothorax. ADDITIONAL FINDINGS: No significant additional findings. IMPRESSION: 1. No acute findings. Signer Name: Camron Diallo MD Signed: 09/18/2020 9:27 AM Workstation Name: [id number]
[2020-09-18 09:42] LABS: Alanine Aminotransferase 30 units/L (7-56); Albumin 3.7 g/dL (3.9-5); BUN/Creatinine Ratio 11; Blood Urea Nitrogen 13 mg/dL (9-20); Calcium 8.8 mg/dL (8.4-10.2); Hemolysis Index 10
--- NOTE | 2020-09-18 10:00 | Emergency Department Report ---
Minor Respiratory - HPI Chief Complaint: Upper Respiratory Infection Stated Complaint: COUGH/NOSE RUNNY Time Seen by Provider: 09/18/20 08:13 Duration: 3 Days Pain Location: Chest Severity: moderate Minor Respiratory: Yes Rhinorrhea, Yes Able to Tolerate Fluids, Yes Cough, No Sore Throat, No Ear Pain, No Sick Contacts, No Hemoptysis, No Chest Pain, No Shortness of Breath, No Fever Other History: Mr. Simmons is a pleasant 65-year-old -[place] male that comes to the emergency room today complaining of a cough for 3 days. He denies fever or chills. He has received 2 Covid immunizations. Patient denies any nausea vomiting diarrhea. He denies any abdominal or back pain. He is ambulatory to the ER today. Patient has no hypotension or tachycardia on exam. Patient does have a significant medical history including COPD. Refer to EMR. ED Review of Systems ROS: Stated complaint: COUGH/NOSE RUNNY Other details as noted in HPI Comment: All other systems reviewed and negative ED Past Medical Hx - Past Medical History Previous Medical History?: Yes Hx Hypertension: Yes Hx Diabetes: Yes Hx Arthritis: Yes Hx Asthma: Yes Hx COPD: Yes Additional medical history: ENLARGED HEART. NODULES ON LUNGS. SLEEP APNEA Uses a CPAP machine at night. brain aneurism. AVM. - Surgical History Past Surgical History?: Yes Additional Surgical History: Hip replacement - RIGHT. BACK ABLATION - Family History Family history: no significant - Social History Smoking Status: Never Smoker Substance Use Type: None - Medications Home Medications: Home Medications Medication Instructions Recorded Confirmed Last Taken Type Insulin NPH/Regular [NovoLIN 70/30] 85 units SUB-Q BID 01/25/13 01/06/15 01/25/13 08:00 History Albuterol Mdi (or & Nicu Only) 2 puff IH QID PRN 11/03/14 01/06/15 Unknown History [ProAir HFA Inhaler] Metoprolol [Lopressor TAB] 50 mg PO DAILY 11/03/14 01/06/15 Unknown History metFORMIN [Glucophage] 1,000 mg PO BID 11/03/14 01/06/15 Unknown History Aspirin EC [Ecotrin] 325 mg PO QDAY #30 tablet 11/04/14 01/06/15 Unknown Rx Furosemide [Lasix TAB] 80 mg PO QDAY 01/06/15 01/06/15 Unknown History HYDROcodone/APAP 5-325 [[place] 1 each PO Q6HR PRN 01/06/15 01/06/15 Unknown History 5-325 mg TAB] Omeprazole [PriLOSEC] 40 mg PO QDAY 01/06/15 01/06/15 Unknown History Fluticasone [Flonase] 1 spray NS QDAY #1 bottle 05/09/15 Unknown Rx Esomeprazole Magnesium [NexIUM] 40 mg PO QDAY 30 Days #30 03/17/19 Unknown Rx capsule. Azithromycin [Zithromax Z-TIFFANIE] 250 mg PO DAILY #6 tablet 09/18/20 Unknown Rx Benzonatate [Tessalon Perles] 100 mg PO Q8HR PRN #20 capsule 09/18/20 Unknown Rx Cetirizine HCl [ZyrTEC] 10 mg PO DAILY #30 capsule 09/18/20 Unknown Rx Fluticasone [Flonase] 1 spray NS QDAY #1 bottle 09/18/20 Unknown Rx predniSONE [Deltasone] 20 mg PO DAILY #5 tablet 09/18/20 Unknown Rx Minor Respiratory Exam - Exam General: Vital signs noted. No distress. Alert and acting appropriately. HEENT: Yes Pharyngeal Erythema, Yes Moist Mucous Membranes, Yes Frontal Tenderness, No Pharyngeal Exudates, No Rhinorrhea, No Conjuctival Injection, No Maxillary Tenderness Ear: Neither TM Bulge, Neither TM Erythema, Neither EAC Pain, Neither EAC Discharge Neck: Yes Supple, No Adenopathy Lungs: Yes Good Air Exchange, No Wheezes, No Ronchi, No Stridor, No Cough, No Labored Respirations, No Retractions, No Use of Accessory Muscles, No Other Abnormal Lung Sounds Heart: Yes Regular, No Murmur Abdomen: Yes Normal Bowel Sounds, No Tenderness, No Peritoneal Signs Skin: No Rash, No Edema Neurologic: Alert and oriented, no deficits. Musculoskeletal: Unremarkable. ED Course Vital Signs 09/18/20 08:13 Temperature 98.5 F Pulse Rate 99 H Respiratory 20 Rate Blood Pressure 117/65 O2 Sat by Pulse 96 Oximetry ED Medical Decision Making - Lab Data Result diagrams: 09/18/20 08:43 09/18/20 08:43 - EKG Data EKG shows normal: sinus rhythm Rate: normal - EKG Data When compared to previous EKG there are: no significant change Interpretation: no acute changes - Radiology Data Radiology results: report reviewed, image reviewed NAP - Medical Decision Making Labs 09/18/20 09/18/20 08:43 08:43 WBC 5.0 RBC 4.69 Hgb 14.7 Hct 44.7 MCV 95 H MCH 31 MCHC 33 RDW 14.0 Plt Count 184 Lymph % (Auto) 39.1 H [place] % (Auto) 12.1 H Eos % (Auto) 1.9 Baso % (Auto) 0.3 Lymph # (Auto) 1.9 [place] # (Auto) 0.6 Eos # (Auto) 0.1 Baso # (Auto) 0.0 Seg Neutrophils % 46.6 Seg Neutrophils # 2.3 Sodium 141 Potassium 3.8 Chloride 103.2 Carbon Dioxide 27 Anion Gap 15 BUN 13 Creatinine 1.2 Estimated GFR > 60 BUN/Creatinine Ratio 11 Glucose 137 H Calcium 8.8 Total Bilirubin 0.50 AST 25 ALT 30 Alkaline Phosphatase 75 Troponin T 0.015 Total Protein 7.4 Albumin 3.7 L Albumin/Globulin Ratio 1.0 Vital Signs 09/18/20 08:13 Temperature 98.5 F Pulse Rate 99 H Respiratory 20 Rate Blood Pressure 117/65 O2 Sat by Pulse 96 Oximetry X-ray noted with no acute process. Labs noted. WBC normal. Troponin normal. Twelve-lead EKG with no acute ST-T wave changes. And unchanged from previous. On reexam patient denies any recent chest pain or shortness of breath. He just discusses and focuses on a persistent cough for 3 days. On further HPI he endorses postnasal drip especially at night when lying flat. He denies any wheezing. He has not seen his primary care doctor at [place]. Patient medicated with prednisone. I discussed with him his blood glucose. He is diabetic and will need to monitor his blood glucose given his steroids. However, I told him the benefits outweigh the risk of getting him over this cough and upper respiratory infection. Patient discharged home. He verbalizes understanding of discharge plan of care. He is ambulatory nontoxic and [id number] on discharge. He is taking p.o. without difficulty. - Differential Diagnosis RO PNA/URI Critical care attestation.: If time is entered above; I have spent that time in minutes in the direct care of this critically ill patient, excluding procedure time. ED Disposition Clinical Impression: URI (upper respiratory infection), History of diabetes mellitus Disposition: DC- TO HOME OR SELFCARE Is pt being admited?: No Does the pt Need Aspirin: No Condition: Stable Instructions: Cough, Adult, [id number] Additional Instructions: MEDS ORDERED TODAY STAY WELL HYDRATED FOLLOW UP WITH PCP NEXT WEEK REFERRAL BELOW MONITOR BLOOD GLUCOSE Prescriptions: predniSONE [Deltasone] 20 mg PO DAILY #5 tablet Fluticasone [Flonase] 1 spray NS QDAY #1 bottle Benzonatate [Tessalon Perles] 100 mg PO Q8HR PRN #20 capsule PRN Reason: Cough Azithromycin [Zithromax Z-TIFFANIE] 250 mg PO DAILY #6 tablet Cetirizine HCl [ZyrTEC] 10 mg PO DAILY #30 capsule Referrals: PAPO FRANKLIN MD [Staff Physician] - 3-5 Days Time of Disposition: 10:03
[2020-09-18] MEDS ORDERED: predniSONE 20 MG TAB PO ONE (10:07)
--- NOTE | 2020-09-19 17:41 | Electrocardiograph Report ---
[facility] Test Date: 2020-09-18 Test Time: 09:07:32 Pat Name: NATALY MENARD Department: Room: Gender: M Custodial Laborer: DANIS : 1955 Requested By: JOSE GUADALUPE CARREON Order Number: [id number] Reading MD: Jose R Waller Measurements Intervals [place] Rate: 92 P: 66 [place]: 144 QRS: 56 QRSD: 79 T: 11 QT: 364 QTc: 449 Interpretive Statements Sinus rhythm Probable left atrial enlargement No previous ECG available for comparison Electronically Signed On 09-19-2020 17:41:40 EDT by Jose R Waller
== END 2020-09-18 11:03 | disposition home or self-care (01) ==
LOC: ED 07:55
DX: J06.9 Acute upper respiratory infection, unspecified (principal); E11.9 Type 2 diabetes mellitus without complications; I10 Essential (primary) hypertension; M19.91 Primary osteoarthritis, unspecified site; J44.9 Chronic obstructive pulmonary disease, unspecified; Z98.890 Other specified postprocedural states; Z79.899 Other long term (current) drug therapy; Z79.4 Long term (current) use of insulin; Z88.8 Allergy status to other drugs, medicaments and biological substances
CPT/HCPCS: 36415; 71046; 80053; 82962; 84484; 85025; 93005; 99284; J7512

== ENCOUNTER 2021-05-07 17:20 | Emergency (ER) | payer MEDICARE ==
[2021-05-07 17:39] VITALS: BP 126/71
== END 2021-05-08 06:49 | disposition left against medical advice (07) ==
LOC: ED 17:20
DX: Z00.00 Encounter for general adult medical examination without abnormal findings (principal); Z53.21 Procedure and treatment not carried out due to patient leaving prior to being seen by health care provider
CPT/HCPCS: 82962

== ENCOUNTER 2021-09-10 09:01 | Emergency (ER) | payer MEDICARE ==
[2021-09-10] MEDS ORDERED: methylPREDNISolone Sod Succinate 125 MG/2 ML INJ IM ONE (11:33)
[2021-09-10] MEDS ORDERED: BENZONATATE 100 MG CAP PO ONE (11:34)
[2021-09-10] MEDS ORDERED: ACETAMINOPHEN W/CODEINE 300-30 MG TAB PO ONE (11:34)
[2021-09-10] MEDS ORDERED: IPRATROPIUM/ALBUTEROL SULFATE 3 ML AMPUL.NEB IH ONE (11:34)
--- NOTE | 2021-09-10 13:14 | XRay Report ---
CHEST 2 VIEWS INDICATION / CLINICAL INFORMATION: sob. COMPARISON: 09/18/20 FINDINGS: SUPPORT DEVICES: None. HEART / MEDIASTINUM: No significant abnormality. LUNGS / PLEURA: Mild bibasilar atelectasis. No pneumothorax. ADDITIONAL FINDINGS: No significant additional findings. IMPRESSION: 1. Mild bibasilar atelectasis. Signer Name: Saul Crockett MD Signed: 09/10/2021 1:10 PM Workstation Name: [id number]
--- NOTE | 2021-09-10 13:26 | Emergency Department Report ---
ED ENT HPI - General Chief complaint: Dyspnea/Respdistress Stated complaint: UNCONTROL COUGH Time Seen by Provider: 09/10/21 11:19 Source: patient Mode of arrival: Ambulatory Limitations: No Limitations - History of Present Illness Initial comments: 66-year-old black male with a past medical history of hypertension, diabetes, arthritis, and bronchitis presents to the emergency department for evaluation of 3-day history of cough, wheezing, congestion, and shortness of breath. He denies chest pain and fever but states that he has had headache and runny nose. MD complaint: other (Cough, congestion, wheezing) -: Gradual, days(s) (3) Associated Symptoms: cough, rhinorrhea. denies: fever, gum swelling, toothache, pain with swallowing, sore throat, tinnitus, hearing loss, discharge from ear - Related Data Home Medications Medication Instructions Recorded Confirmed Last Taken Insulin NPH/Regular [NovoLIN 70/30] 85 units SUB-Q BID 01/25/13 09/10/21 01/25/13 08:00 Albuterol Mdi (or & Nicu Only) 2 puff IH QID PRN 11/03/14 09/10/21 Unknown [ProAir HFA Inhaler] Metoprolol [Lopressor TAB] 50 mg PO DAILY 11/03/14 09/10/21 Unknown metFORMIN [Glucophage] 1,000 mg PO BID 11/03/14 09/10/21 Unknown Furosemide [Lasix TAB] 80 mg PO QDAY 01/06/15 09/10/21 Unknown HYDROcodone/APAP 5-325 [[place] 1 each PO Q6HR PRN 01/06/15 09/10/21 Unknown 5-325 mg TAB] Omeprazole [PriLOSEC] 40 mg PO QDAY 01/06/15 09/10/21 Unknown Previous Rx's Medication Instructions Recorded Last Taken Type Aspirin EC [Ecotrin] 325 mg PO QDAY #30 tablet 11/04/14 Unknown Rx Fluticasone [Flonase] 1 spray NS QDAY #1 bottle 05/09/15 Unknown Rx Esomeprazole Magnesium [NexIUM] 40 mg PO QDAY 30 Days #30 03/17/19 Unknown Rx capsule. Azithromycin [Zithromax Z-TIFFANIE] 250 mg PO DAILY #6 tablet 09/18/20 Unknown Rx Benzonatate [Tessalon Perles] 100 mg PO Q8HR PRN #20 capsule 09/18/20 Unknown Rx Cetirizine HCl [ZyrTEC] 10 mg PO DAILY #30 capsule 09/18/20 Unknown Rx Fluticasone [Flonase] 1 spray NS QDAY #1 bottle 09/18/20 Unknown Rx predniSONE [Deltasone] 20 mg PO DAILY #5 tablet 09/18/20 Unknown Rx Albuterol Mdi (or & Nicu Only) 2 puff IH QID PRN #8.5 gram 09/10/21 Unknown Rx [ProAir HFA Inhaler] Benzonatate [Tessalon Perles] 100 mg PO Q8HR #21 cap 09/10/21 Unknown Rx Prednisone [predniSONE 10 mg 10 mg PO .TAPER #1 pack 09/10/21 Unknown Rx (6-Day Pack, 21 Tabs)] guaiFENesin/CODEINE [Robitussin AC] 10 ml PO TID PRN #120 ml 09/10/21 Unknown Rx Allergies Allergy/AdvReac Type Severity Reaction Status Date / Time lisinopril Allergy Itching Verified 09/10/21 11:26 metformin AdvReac Diarrhea Verified 09/10/21 11:26 ED Dental HPI - General Chief complaint: Dyspnea/Respdistress Stated complaint: UNCONTROL COUGH Time Seen by Provider: 09/10/21 11:19 Source: patient Mode of arrival: Ambulatory Limitations: No Limitations - Related Data Home Medications Medication Instructions Recorded Confirmed Last Taken Insulin NPH/Regular [NovoLIN 70/30] 85 units SUB-Q BID 01/25/13 09/10/21 01/25/13 08:00 Albuterol Mdi (or & Nicu Only) 2 puff IH QID PRN 11/03/14 09/10/21 Unknown [ProAir HFA Inhaler] Metoprolol [Lopressor TAB] 50 mg PO DAILY 11/03/14 09/10/21 Unknown metFORMIN [Glucophage] 1,000 mg PO BID 11/03/14 09/10/21 Unknown Furosemide [Lasix TAB] 80 mg PO QDAY 01/06/15 09/10/21 Unknown HYDROcodone/APAP 5-325 [[place] 1 each PO Q6HR PRN 01/06/15 09/10/21 Unknown 5-325 mg TAB] Omeprazole [PriLOSEC] 40 mg PO QDAY 01/06/15 09/10/21 Unknown Previous Rx's Medication Instructions Recorded Last Taken Type Aspirin EC [Ecotrin] 325 mg PO QDAY #30 tablet 11/04/14 Unknown Rx Fluticasone [Flonase] 1 spray NS QDAY #1 bottle 05/09/15 Unknown Rx Esomeprazole Magnesium [NexIUM] 40 mg PO QDAY 30 Days #30 03/17/19 Unknown Rx capsule. Azithromycin [Zithromax Z-TIFFANIE] 250 mg PO DAILY #6 tablet 09/18/20 Unknown Rx Benzonatate [Tessalon Perles] 100 mg PO Q8HR PRN #20 capsule 09/18/20 Unknown Rx Cetirizine HCl [ZyrTEC] 10 mg PO DAILY #30 capsule 09/18/20 Unknown Rx Fluticasone [Flonase] 1 spray NS QDAY #1 bottle 09/18/20 Unknown Rx predniSONE [Deltasone] 20 mg PO DAILY #5 tablet 09/18/20 Unknown Rx Albuterol Mdi (or & Nicu Only) 2 puff IH QID PRN #8.5 gram 09/10/21 Unknown Rx [ProAir HFA Inhaler] Benzonatate [Tessalon Perles] 100 mg PO Q8HR #21 cap 09/10/21 Unknown Rx Prednisone [predniSONE 10 mg 10 mg PO .TAPER #1 pack 09/10/21 Unknown Rx (6-Day Pack, 21 Tabs)] guaiFENesin/CODEINE [Robitussin AC] 10 ml PO TID PRN #120 ml 09/10/21 Unknown Rx Allergies Allergy/AdvReac Type Severity Reaction Status Date / Time lisinopril Allergy Itching Verified 09/10/21 11:26 metformin AdvReac Diarrhea Verified 09/10/21 11:26 ED Review of Systems ROS: Stated complaint: UNCONTROL COUGH Other details as noted in HPI Comment: All other systems reviewed and negative Constitutional: denies: chills, fever Eyes: denies: eye pain, eye discharge, vision change ENT: congestion. denies: ear pain, throat pain, dental pain, epistaxis Respiratory: cough, shortness of breath. denies: SOB with exertion, SOB at rest Cardiovascular: denies: chest pain, palpitations, dyspnea on exertion Gastrointestinal: denies: abdominal pain, nausea, vomiting, diarrhea, hematemesis, melena, hematochezia Genitourinary: denies: urgency, dysuria, frequency, hematuria, discharge, testicular pain Skin: denies: rash, lesions Neurological: headache. denies: weakness, numbness ED Past Medical Hx - Past Medical History Hx Hypertension: Yes Hx Diabetes: Yes Hx Arthritis: Yes Hx Asthma: Yes Hx COPD: Yes Additional medical history: ENLARGED HEART. NODULES ON LUNGS. SLEEP APNEA Uses a CPAP machine at night. brain aneurism. AVM. - Surgical History Additional Surgical History: Hip replacement - RIGHT. BACK ABLATION - Social History Smoking Status: Never Smoker Substance Use Type: None - Medications Home Medications: Home Medications Medication Instructions Recorded Confirmed Last Taken Type Insulin NPH/Regular [NovoLIN 70/30] 85 units SUB-Q BID 01/25/13 09/10/21 01/25/13 08:00 History Albuterol Mdi (or & Nicu Only) 2 puff IH QID PRN 11/03/14 09/10/21 Unknown History [ProAir HFA Inhaler] Metoprolol [Lopressor TAB] 50 mg PO DAILY 11/03/14 09/10/21 Unknown History metFORMIN [Glucophage] 1,000 mg PO BID 11/03/14 09/10/21 Unknown History Aspirin EC [Ecotrin] 325 mg PO QDAY #30 tablet 11/04/14 09/10/21 Unknown Rx Furosemide [Lasix TAB] 80 mg PO QDAY 01/06/15 09/10/21 Unknown History HYDROcodone/APAP 5-325 [[place] 1 each PO Q6HR PRN 01/06/15 09/10/21 Unknown History 5-325 mg TAB] Omeprazole [PriLOSEC] 40 mg PO QDAY 01/06/15 09/10/21 Unknown History Fluticasone [Flonase] 1 spray NS QDAY #1 bottle 05/09/15 09/10/21 Unknown Rx Esomeprazole Magnesium [NexIUM] 40 mg PO QDAY 30 Days #30 03/17/19 09/10/21 Unknown Rx capsule. Azithromycin [Zithromax Z-TIFFANIE] 250 mg PO DAILY #6 tablet 09/18/20 09/10/21 Unknown Rx Benzonatate [Tessalon Perles] 100 mg PO Q8HR PRN #20 capsule 09/18/20 09/10/21 Unknown Rx Cetirizine HCl [ZyrTEC] 10 mg PO DAILY #30 capsule 09/18/20 09/10/21 Unknown Rx Fluticasone [Flonase] 1 spray NS QDAY #1 bottle 09/18/20 09/10/21 Unknown Rx predniSONE [Deltasone] 20 mg PO DAILY #5 tablet 09/18/20 09/10/21 Unknown Rx Albuterol Mdi (or & Nicu Only) 2 puff IH QID PRN #8.5 gram 09/10/21 Unknown Rx [ProAir HFA Inhaler] Benzonatate [Tessalon Perles] 100 mg PO Q8HR #21 cap 09/10/21 Unknown Rx Prednisone [predniSONE 10 mg 10 mg PO .TAPER #1 pack 09/10/21 Unknown Rx (6-Day Pack, 21 Tabs)] guaiFENesin/CODEINE [Robitussin AC] 10 ml PO TID PRN #120 ml 09/10/21 Unknown Rx ED Physical Exam - General Limitations: No Limitations General appearance: alert, in no apparent distress - Head Head exam: Present: atraumatic, normocephalic - Eye Eye exam: Present: normal appearance. Absent: conjunctival injection - ENT ENT exam: Present: TM's normal bilaterally. Absent: normal exam (Bilateral nasal mucosal edema and bilateral turbinate swelling), normal orophraynx (Obed thema to posterior oropharynx) - Neck Neck exam: Present: normal inspection. Absent: tenderness, lymphadenopathy - Respiratory Respiratory exam: Present: wheezes (Intermittent expiratory). Absent: respiratory distress, rales, rhonchi, stridor, chest wall tenderness - Cardiovascular Cardiovascular Exam: Present: regular rate, normal heart sounds - GI/Abdominal GI/Abdominal exam: Present: soft, normal bowel sounds. Absent: distended, tende rness, guarding, rebound, rigid - Extremities Exam Extremities exam: Present: normal inspection, normal capillary refill. Absent: pedal edema, joint swelling, calf tenderness - Back Exam Back exam: Present: normal inspection, full ROM. Absent: tenderness, CVA tenderness (R), CVA tenderness (L) - Neurological Exam Neurological exam: Present: alert, oriented X3, normal gait - Psychiatric Psychiatric exam: Present: normal affect, normal mood - Skin Skin exam: Present: warm, dry, intact, normal color ED Course Vital Signs 09/10/21 09/10/21 09/10/21 11:00 11:23 13:31 Temperature 98.4 F 98.9 F 98.4 F Pulse Rate 100 H 81 81 Respiratory 16 20 20 Rate Blood Pressure 148/82 130/89 146/85 [Left] O2 Sat by Pulse 97 97 99 Oximetry - Reevaluation(s) Reevaluation #1: 09/10/21 14:23 Patient states that symptoms have improved after medication and he feels much better. ED Medical Decision Making - Radiology Data Radiology results: report reviewed, image reviewed Chest x-ray: FINDINGS: SUPPORT DEVICES: None. HEART / MEDIASTINUM: No significant abnormality. LUNGS / PLEURA: Mild bibasilar atelectasis. No pneumothorax. ADDITIONAL FINDINGS: No significant additional findings. IMPRESSION: 1. Mild bibasilar atelectasis. - Medical Decision Making 66-year-old black male with a past medical history of hypertension, diabetes, arthritis, and bronchitis presents to the emergency department for evaluation of 3-day history of cough, wheezing, congestion, and shortness of breath. He denies chest pain and fever but states that he has had headache and runny nose No gross abnormalities noted on exam, and chest x-ray without any acute abnormalities. Patient had improvement of symptoms after medication, so he will be treated for URI with cough and congestion. He will be discharged home with steroid pack, Tessalon Perles, albuterol inhaler, and Robitussin-AC. He is advised to take medications as prescribed, drink plenty of noncaffeinated f luids, and follow-up with his primary care provider if no improvement or worsening symptoms. He verbalized understanding of and agreement with plan of care. Critical care attestation.: If time is entered above; I have spent that time in minutes in the direct care of this critically ill patient, excluding procedure time. ED Disposition Clinical Impression: URI with cough and congestion Disposition: 01 HOME / SELF CARE / HOMELESS Is pt being admited?: No Does the pt Need Aspirin: No Condition: Stable Instructions: Cough, Adult, [id number], Upper Respiratory Infection, Adult, [id number] Additional Instructions: Take medications as prescribed. Follow-up with primary care provider if no improvement or worsening symptoms. Return to the emergency department as needed. Prescriptions: Prednisone [predniSONE 10 mg (6-Day Pack, 21 Tabs)] 10 mg PO .TAPER #1 pack Albuterol Mdi (or & Nicu Only) [ProAir HFA Inhaler] 2 puff IH QID PRN #8.5 gram PRN Reason: Shortness Of Breath guaiFENesin/CODEINE [Robitussin AC] 10 ml PO TID PRN #120 ml PRN Reason: cough Benzonatate [Tessalon Perles] 100 mg PO Q8HR #21 cap Referrals: PAPO FRANKLIN MD [Staff Physician] - 3-5 Days Time of Disposition: 13:26
[2021-09-10 13:31] VITALS: BP 146/85
== END 2021-09-10 13:31 | disposition home or self-care (01) ==
LOC: ED 09:01
DX: J06.9 Acute upper respiratory infection, unspecified (principal); R05.9 Cough, unspecified; I10 Essential (primary) hypertension; E11.8 Type 2 diabetes mellitus with unspecified complications
CPT/HCPCS: 71046; 96372; 99283; J2930